=== PATIENT | female | born 1995 | race African-American/Black ===

== ENCOUNTER 2016-03-10 11:45 | Inpatient (IN) | payer MEDICAID ==
--- NOTE | 2016-03-10 12:00 | L&D Flow Sheet ---
LD Flowsheet Datetime Report Generated by CPN: 03/10/2016 12:00 Datetime: 03/10/2016 11:58 NBP Sys/Kendy/Mean (mmHg): 129 (QS system process) : 89 (QS system process) : 105 (QS system process) Pulse: 97 (QS system process) LaborFlag: Antepartum (QS system process)
[2016-03-10 12:34] LABS: APPEARANCE,URINE CLOUDY; BILIRUBIN,URINE NEGATIVE (NEGATIVE); GLUCOSE, URINE NEGATIVE (NEGATIVE); KETONES,URINE NEGATIVE (NEGATIVE); LEUKOCYTE ESTERASE,URINE MODERATE (NEGATIVE); NITRITE,URINE NEGATIVE (NEGATIVE); PROTEIN,URINE NEGATIVE (NEGATIVE); URINE SPECIFIC GRAVITY 1.011; UROBILINOGEN,URINE NEGATIVE mg/dL (<2.0)
[2016-03-10 12:50] LABS: URINE BARBITURATES SCREEN NEGATIVE; URINE METHADONE SCREEN NEGATIVE; URINE PHENCYCLIDINE SCREEN NEGATIVE
[2016-03-10] MEDS ORDERED: RINGERS SOLUTION,LACTATED 1,000 ML IV ONE (13:12)
[2016-03-10] MEDS ORDERED: DEXTROSE 5%-LACTATED RINGERS 1,000 ML IV PRN (13:12)
[2016-03-10] MEDS ORDERED: RINGERS SOLUTION,LACTATED 1,000 ML IV PRN (13:12)
[2016-03-10 14:16] LABS: ABSOLUTE LYMPHOCYTES (AUTO) 2.1 10^3/uL (0.5-4.7); ABSOLUTE NEUT (AUTO) 10.5 10^3/uL (1.7-8.2); BASOPHILS % (AUTO) 0.3 % (0-2); EOSINOPHILS % (AUTO) 0.3 % (0-6); HEMATOCRIT 35.9 % (36.0-47.0); HEMOGLOBIN 12.3 g/dL (12.0-15.5); LYMPHOCYTES % (AUTO) 15.6 % (13-45); MEAN CORPUSCULAR HEMOGLOBIN 29.3 pg (27.0-33.4); MEAN CORPUSCULAR HGB CONC 34.4 g/dL (32.0-36.0); MEAN CORPUSCULAR VOLUME 85 fl (80-97); RED BLOOD COUNT 4.21 10^6/uL (3.72-5.28); RED CELL DISTRIBUTION WIDTH 13.1 % (11.5-14.0); SEGMENTED NEUTROPHILS % (AUTO) 76.8 % (42-78); WHITE BLOOD COUNT 13.6 10^3/uL (4.0-10.5)
[2016-03-10] MEDS ORDERED: MISOPROSTOL 0.2 MG TABLET ONE (15:07)
[2016-03-10] MEDS ORDERED: OXYTOCIN/NORMAL SALINE 20 UNIT/1,000 ML RTUINJ ONE (15:07)
[2016-03-10] MEDS ORDERED: LIDOCAINE 1% INJ-PF (10 MG/ML) 30 ML SDV ONE (15:07)
--- NOTE | 2016-03-10 16:00 | L&D Flow Sheet ---
LD Flowsheet Datetime Report Generated by CPN: 03/10/2016 16:00 Datetime: 03/10/2016 15:59 Pulse: 71 (QS system process) SpO2 (%): 100 (QS system process) LaborFlag: Antepartum (QS system process) Datetime: 03/10/2016 15:57 Pushing: Coached on Pushing; Urge to Push (Elmira Woodard RN) Pushing Position: Pushing with Contractions; Pushing Lithotomy (Elmira Atkinson, RN) Pushing Progress: Descent with Pushing; Pushing Effectively with Contractions (Elmira Annard, RN) Datetime: 03/10/2016 15:56 Actions for Decelerations: Oxygen Applied (Elmira Annard, RN) Oxygen Amount : 10 (Elmira Annard, RN) Datetime: 03/10/2016 15:55 NBP Sys/Kendy/Mean (mmHg): 140 (QS system process) : 79 (QS system process) : 103 (QS system process) Pulse: 82 (QS system process) LaborFlag: Antepartum (QS system process) Datetime: 03/10/2016 15:53 Comments: scalp stim (Elmira Vnace, RN) Communication: Provider at Bedside (Elmira Annard, RN) Provider Notified (Name): Dr. Tobias at bedside (Elmira Vance, RN) Datetime: 03/10/2016 15:52 Pushing: Coached on Pushing (Elmira Vance, RN) Pushing Position: Pushing with Contractions; Pushing Lithotomy (Elmira Atkinson, RN) Pushing Progress: Pushing Effectively with Contractions (Elmira Atkinson, RN) Stage 2 Comments: pull technique (Elmira Atkinson, RN) Datetime: 03/10/2016 15:49 Pushing: Coached on Pushing (Elmira Vance, RN) Pushing Position: Pushing with Contractions (Elmira Atkinson, RN) Pushing Progress: Pushing Effectively with Contractions (Elmira Atkinson, RN) Datetime: 03/10/2016 15:44 Pushing: Coached on Pushing; Urge to Push (Elmira Woodard, TRUE) Pushing Position: Pushing with Contractions; Pushing Lithotomy (Elmira Woodard, TRUE) Pushing Progress: Descent with Pushing; Pushing Effectively with Contractions (Elmira Woodard, RN) Datetime: 03/10/2016 15:43 Dilatation (cm): 10.0 (Elmira Woodard, TRUE) Effacement (%): 100 (Elmira Woodard, TRUE) Station: 1 (Elmira Woodard, TRUE) Exam by: Dr. Tobias (Elmira Woodard, TRUE) Vaginal Bleeding: Normal Show (Elmira Woodard, TRUE) Cervix, Consistency: Soft (Elmira Woodard, RN) Cervix, Position: Midposition (Elmira Woodard, RN) Datetime: 03/10/2016 15:42 Provider Reviewed Strip: Yes (Elmira Woodard RN) Communication: RN at Bedside; Provider at Bedside (Elmira Woodard RN) Provider Notified (Name): Dr. Tobias at bedside to assess cervical dilation and for delivery (Elmira Woodard RN) Datetime: 03/10/2016 15:37 Dilatation (cm): 9.5 (Paulette Lindsey RN) Effacement (%): 100 (Paulette Lindsey RN) Station: 2 (Paulette Lindsey RN) Exam by: Brooklyn Lindsey RN (Paulette Lindsey RN) Vaginal Bleeding: None (Paulette Lindsey RN) Cervix, Consistency: Soft (Paulette Lindsey RN) Cervix, Position: Midposition (Paulette Lindsey RN) Datetime: 03/10/2016 15:30 Monitor Mode: External; Palpation (Elmira Woodard, RN) Frequency (min): 2-3.5 (Elmira Woodard, RN) Quality: Moderate (Elmira Annard, RN) Duration (sec): 60-90 (Elmira Annard, RN) Resting Tone (Palpate): Relaxed (Elmira Woodard, RN) Monitor Mode: External US (Elmira Woodard, RN) FHR Baseline Rate : 115 (Elmira Woodard, RN) FHR Baseline Changes: No Baseline Change (Elmira Annard, RN) Variability: Moderate 6-25 bpm (Elmira Atkinson, RN) Accelerations: 15X15 (Elmira Annard, RN) Decelerations: Early (Elmira Woodard, RN) Datetime: 03/10/2016 15:27 Comments: RN at bedside continuoulsy assessing FHT while patient pushes with contractions. (Elmira Woodard, RN) Communication: RN at Bedside (Elmira Woodard, RN) Datetime: 03/10/2016 15:26 Preparation for Delivery: Setup for Delivery (Elmira Woodard, RN) Datetime: 03/10/2016 15:18 Dilatation (cm): 8.5 (Paulette Lindsey RN) Effacement (%): 100 (Paulette Lindsey RN) Station: 2 (Paulette Lindsey RN) Exam by: Dr. Tobias (Paulette Lindsey RN) Membrane Status: Ruptured (Paulette Lindsey RN) Membranes Rupture Method: Artificial (Paulette Lindsey RN) Amniotic Fluid Color: Clear (Paulette Lindsey RN) Amniotic Fluid Amount: Small (Paulette Lindsey RN) Datetime: 03/10/2016 15:08 Monitor Interventions for UA: [place] Adjusted (Paulette Lindsey RN) Datetime: 03/10/2016 15:05 Monitor Interventions for UA: [place] Adjusted (Paulette Marhefka, RN) Datetime: 03/10/2016 15:00 Monitor Mode: External; Palpation (Paulette Marhefka, RN) Frequency (min): 40-60 (Paulette Marhefka, RN) Quality: Moderate (Paulette Marhefka, RN) Duration (sec): 1-2 (Paulette Marhefka, RN) Resting Tone (Palpate): Relaxed (Paulette Marhefka, RN) Monitor Mode: External US (Paulette Marhefka, RN) FHR Baseline Rate : 120 (Paulette Marhefka, RN) FHR Baseline Changes: No Baseline Change (Paulette Marhefka, RN) Variability: Moderate 6-25 bpm (Paulette Marhefka, RN) Accelerations: 15X15 (Paulette Marhefka, RN) Decelerations: None (Paulette Marhefka, RN) Datetime: 03/10/2016 14:59 Pain Scale: 4 (Paulette Lindsey RN) Pain Presence: Intermittent (Paulette Lindsey RN) Pain Type: Contraction (Paulette Lindsey RN) Pain Location: Abdomen (Paulette Lindsey RN) Pain Goal: 0 (Paulette Lindsey RN) Pain Relief Measures: Comfort Measures (Paulette Lindsey RN) Pain Coping: Breathing Through Contractions; Requesting Pain Medication or Epidural (Paulette Lindsey RN) Pain Assessment Comments: Pt requesting IV pain medication, stating that she would like to continue laboring without the epidural. Pt counseled on the effects of IV pain medication on infant's RR. Pt verbalized understanding, declining IV medication post counseling. (Paulette Lindsey RN) Comfort Measures: Breathing/Relaxation (Paulette Lindsey RN) Communication: Report Given to @ Dr. Tobias (Paulette Lindsey RN) Notification Reason: Status Update; Labor Status; Membrane Status; Patient Request (Paulette Lindsey RN) LaborFlag: Antepartum (QS system process) Datetime: 03/10/2016 14:55 Dilatation (cm): 7.0 (Paulette Lindsey RN) Effacement (%): 100 (Paulette Lindsey RN) Station: 0 (Paulette Lindsey RN) Exam by: Brooklyn Lindsey RN (Paulette Lindsey RN) Vaginal Bleeding: None (Paulette Lindsey RN) Cervix, Consistency: Soft (Paulette Lindsey RN) Cervix, Position: Midposition (Paulette Lindsey RN) Datetime: 03/10/2016 14:27 Patient Care Comments: Pt bouncing on birthing ball, with support from her friend @ bedside. (Paulette Lindsey RN) Datetime: 03/10/2016 14:03 I/O Interventions: Up to BR (Paulette Lindsey RN) Patient Care Comments: Pt OOB to bathroom and then ambulating in the martin. (Paulette Lindsey RN) Datetime: 03/10/2016 14:00 Monitor Mode: External; Palpation (Paulette Marhefka, RN) Frequency (min): 2-4 (Paulette Marhefka, RN) Quality: Mild/Moderate (Paulette Marhefka, RN) Duration (sec): 40-80 (Paulette Marhefka, RN) Resting Tone (Palpate): Relaxed (Paulette Marhefka, RN) Monitor Mode: External US (Paulette Marhefka, RN) FHR Baseline Rate : 115 (Paulette Marhefka, RN) FHR Baseline Changes: No Baseline Change (Paulette Marhefka, RN) Variability: Moderate 6-25 bpm (Paulette Marhefka, RN) Accelerations: 15X15 (Paulette Marhefka, RN) Decelerations: None (Paulette Marhefka, RN) Datetime: 03/10/2016 13:43 IV/Blood Work: Labs Drawn (Paulette Marhefka, RN) Datetime: 03/10/2016 13:30 Monitor Mode: External; Palpation (Paulette Marhefka, RN) Frequency (min): 1-5 (Paulette Marhefka, RN) Quality: Mild/Moderate (Paulette Marhefka, RN) Duration (sec): 40-110 (Paulette Marhefka, RN) Resting Tone (Palpate): Relaxed (Paulette Marhefka, RN) Monitor Mode: External US (Paulette Marhefka, RN) FHR Baseline Rate : 115 (Paulette Marhefka, RN) FHR Baseline Changes: No Baseline Change (Paulette Marhefka, RN) Variability: Moderate 6-25 bpm (Paulette Marhefka, RN) Accelerations: 15X15 (Paulette Marhefka, RN) Decelerations: None (Paulette Marhefka, RN) Datetime: 03/10/2016 13:26 IV/Blood Work: IV Started; IV Infusing per Order; New IV Bag Hung (Paulette Marhefka, RN) Datetime: 03/10/2016 13:24 Unit Routine: Consents Signed (Paulette Lindsey RN) Datetime: 03/10/2016 13:16 Communication: Call/Page Placed to Provider (Paulette Lindsey RN) Notification Reason: Status Update; Status; Labor Status; Membrane Status; Pain (Paulette Lindsey RN) Communication Comments: Dr. Tobias notified of patient's vaginal exam, order received to admit patient. Order also received, pt may have epidural prn. (Paulette Lindsey RN) Datetime: 03/10/2016 13:06 Dilatation (cm): 4.5 (Paulette Lindsey RN) Effacement (%): 100 (Paulette Lindsey RN) Station: 0 (Paulette Lindsey RN) Exam by: Brooklyn Lindsey RN (Paulette Lindsey RN) Vaginal Bleeding: None (Paulette Lindsey RN) Cervix, Consistency: Soft (Paulette Marhefka, RN) Cervix, Position: Midposition (Paulette Lindsey, RN) Datetime: 03/10/2016 13:05 NBP Sys/Kendy/Mean (mmHg): 124 (QS system process) : 64 (QS system process) : 87 (QS system process) Pulse: 77 (QS system process) LaborFlag: Antepartum (QS system process) Datetime: 03/10/2016 12:31 Temperature (F): 97.4 (Alena Tobias RN) Temperature (C): 36.3 (QS system process) Temperature Route: Oral (Alena Tobias RN) LaborFlag: Antepartum (QS system process) Datetime: 03/10/2016 12:23 Monitor Mode: External (Paulette Marhefka, RN) Frequency (min): 2-4 (Paulette Marhefka, RN) Quality: Mild (Paulette Marhefka, RN) Duration (sec): 50-70 (Paulette Marhefka, RN) Resting Tone (Palpate): Relaxed (Paulette Marhefka, RN) Monitor Mode: External US (Paulette Marhefka, RN) FHR Baseline Rate : 120 (Paulette Marhefka, RN) FHR Baseline Changes: No Baseline Change (Paulette Marhefka, RN) Variability: Moderate 6-25 bpm (Paulette Marhefka, RN) Accelerations: 15X15 (Paulette Marhefka, RN) Decelerations: None (Paulette Marhefka, RN) Datetime: 03/10/2016 12:16 NBP Sys/Kendy/Mean (mmHg): 115 (QS system process) : 80 (QS system process) : 91 (QS system process) Pulse: 76 (QS system process) LaborFlag: Antepartum (QS system process) Datetime: 03/10/2016 12:07 Pain Scale: 4 (Paulette Lindsey RN) Pain Presence: Intermittent (Annotations: Pt states that her pain is constant lower in her abdomen with an occassional sharp pain. ) (Paulette Lindsey RN) Pain Type: Contraction (Paulette Lindsey RN) Pain Location: Abdomen (Paulette Lindsey RN) Pain Goal: 0 (Paulette Lindsey RN) Pain Relief Measures: Comfort Measures (Paulette Lindsey RN) Pain Coping: Breathing Through Contractions (Paulette Lindsey RN) Membrane Status: Intact (Paulette Lindsey RN) Vaginal Bleeding: None (Paulette Lindsey RN) Level of Consciousness: Fully Conscious (Paulette Lindsey RN) DTR's/Clonus: DTRs 2+; No Clonus (Paulette Lindsey RN) Headache: Denies (Paulette Lindsey RN) Breath Sounds, Left: Clear and Equal (Paulette Lindsye RN) Breath Sounds, Right: Clear and Equal (Paulette Lindsey RN) Nausea/Vomiting: Present (Annotations: Pt states that she vomited right before arrival) (Paulette Lindsey RN) RUQ Epigastric Pain: Denies (Paulette Lindsey RN) LaborFlag: Antepartum (QS system process) Datetime: 03/10/2016 12:02 Dilatation (cm): 3.0 (Paulette Lindsey RN) Effacement (%): 100 (Paulette Lindsey RN) Station: 0 (Paulette Lindsey RN) Exam by: Brooklyn Lindsey RN (Paulette Lindsey RN) Vaginal Bleeding: None (Paulette Lindsey RN) Cervix, Consistency: Soft (Paulette Lindsey RN) Cervix, Position: Midposition (Paulette Lindsey RN)
[2016-03-10] MEDS ORDERED: OXYTOCIN/NORMAL SALINE 1,000 ML IV PRN (16:49)
[2016-03-10] MEDS ORDERED: MEASLES,MUMPS&RUBELLA VACC/PF 0.5 ML VIAL SUBCUT PRN (16:49)
[2016-03-10] MEDS ORDERED: DIBUCAINE 1% OINTMENT 28 GM TP PRN (16:49)
[2016-03-10] MEDS ORDERED: BENZOCAINE/MENTHOL AEROSOL SPRAY 56 ML TOP PRN (16:49)
[2016-03-10] MEDS ORDERED: ACETAMINOPHEN WITH CODEINE #3 TABLET PO PRN ×2 (16:49)
[2016-03-10] MEDS ORDERED: DIPH/PERTUSS(ACELL)/TETANUS VAC/PF 0.5 ML SYR (>=10YO) IM PRN (16:49)
[2016-03-10] MEDS ORDERED: ZOLPIDEM TARTRATE 5 MG TABLET PO PRN (16:49)
--- NOTE | 2016-03-10 17:50 | Delivery Summary ---
Del Sum A-C Datetime Report Generated by CPN: 03/10/2016 17:50 ADMISSION DATA Chief Complaint: Uterine Contractions Indication for Induction: Not Applicable Admission Impression: Term, Intrauterine ; Active Labor DELIVERY PERSONNEL Delivery Doctor:: Anayeli Tobias MD Labor and Delivery Nurse:: Paulette Lindsey RNsurgical first assistant Nurse:: Elmira Woodard RN Nursery Nurse:: Carissa White RN Staff Engineer/WASHER MACHINE: Shelton [address] ST MATERNAL INFORMATION Delivery Anesthesia: None Medications After Delivery: Pitocin Bolus-Please Comment; Pitocin Drip 20 Units/1000ml NSS Estimated Blood Loss (ml): 200 Maternal Complications: None LABOR SUMMARY EDC: 03/15/2016 00:00 No. Babies in Womb: 1 Attempted: No Labor Anesthesia: None LABOR INFORMATION Reason for Induction: Not Applicable Onset of Labor: 03/10/2016 12:00 Complete Dilatation: 03/10/2016 15:43 Oxytocin: N/A Group B Beta Strep: Negative Antibiotics # of Doses: n/a Antibiotics Time of Last Dose: n/a Name of Antibiotic Given: n/a Steroids Given: None Reason Steroids Not Administered: Not Applicable Other Reason Not Administered: n/a MEMBRANES Membranes Rupture Method: Artificial Rupture of Membranes: 03/10/2016 15:18 Length of Rupture (hr): 1.23 Amniotic Fluid Color: Clear Amniotic Fluid Amount: Small Amniotic Fluid Odor: Normal STAGES OF LABOR Stage 1 hr: 3 Stage 1 min: 43 Stage 2 hr: 0 Stage 2 min: 49 Stage 3 hr: 0 Stage 3 min: 5 Total Time in Labor hr: 4 Total Time in Labor min: 37 VAGINAL DELIVERY Episiotomy: None Laceration Extension: N/A Laceration Type: None Laceration Repair: Not Applicable Sponge Count Correct: N/A Sharps Count Correct: N/A BABY A INFORMATION Infant Delivery Date/Time: 03/10/2016 16:32 Method of Delivery: Vaginal Born in Route : No : N/A Forceps: N/A Vacuum Extraction: N/A Shoulder Dystocia : No PRESENTATION/POSITION BABY A Presentation: Cephalic Cephalic Presentation: Vertex Vertex Position: Right Occipital Anterior Breech Presentation: N/A PLACENTA INFORMATION BABY A Placenta Delivery Time : 03/10/2016 16:37 Placenta Method of Delivery: Spontaneous Placenta Status: Delivered SCORES BABY A Heart Rate 1 min: >100 bpm Resp Effort 1 min: Good Cry Reflex Irritability 1 min: Cough or Sneeze or Pulls Away Muscle Tone 1 min: Some Flexion of Extremities Color 1 min: Blue/Pale Resuscitation Effort 1 min: Tactile Stimulation SCORE 1 MIN: 7 Heart Rate 5 min: >100 bpm Resp Effort 5 min: Good Cry Reflex Irritability 5 min: Cough or Sneeze or Pulls Away Muscle Tone 5 min: Some Flexion of Extremities Color 5 min: Body [place], Extremities Blue Resuscitation Effort 5 min: Tactile Stimulation SCORE 5 MIN: 8 INFORMATION BABY A Gestational Age at Delivery: 39.2 Gestational Status: Full Term- 39- 40.6 Weeks Infant Outcome : Liveborn Condition : Stable Sex: Female IDENTIFICATION BABY A Verification Date/Time: 03/10/2016 17:01 ID Band Number: [id number] Mother's Name Verified: Yes RN Verifying : Brooklyn SaraviaharvindernuTRUE ocampo/Betsy Tobias RN WEIGHT/LENGTH BABY A Infant Birthweight (gm): 2981 Infant Weight (lb): 6 Weight (oz): 9 Infant Length (in): 19.75 Length (cm): 50.17 CORD INFORMATION BABY A No. Cord Vessels: 3 Nuchal Cord : N/A Cord Blood Taken: Yes-For Eval (Mom's Blood Type - or O+) Suction: Mouth; Nose ASSESSMENT BABY A Complications: None Complications- Other: Compound hand Physical Findings at Delivery: Within Normal Limits Infant Respirations: Tachypnea Skin to Skin: Yes Polygraph Operator/ALS Called : No Infant Care By: Kong White RN Transferred To: Nursery BABY B INFORMATION : N/A SIGNATURES Signature: with User ID: [email or web address]
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
[2016-03-10] MEDS: FERROUS SULFATE 325 MG TABLET PO SCH (19:00)
[2016-03-10] MEDS: DOCUSATE SODIUM 100 MG CAPSULE PO SCH (19:00)
--- NOTE | 2016-03-10 19:00 | L&D Flow Sheet ---
LD Flowsheet Datetime Report Generated by CPN: 03/10/2016 19:00 Datetime: 03/10/2016 18:20 Stage of : Recovery (Paulette Lindsey RN) NBP Sys/Kendy/Mean (mmHg): 128 (QS system process) : 75 (QS system process) : 97 (QS system process) Pulse: 75 (QS system process) Pain Scale: 0 (Paulette Lindsey RN) Pain Presence: None/Denies (Paulette Lindsey RN) Pain Type: N/A (Paulette Lindsey RN) Pain Goal: 0 (Paulette Lindsey RN) Pain Relief Measures: Comfort Measures (Paulette Lindsey RN) Datetime: 03/10/2016 17:42 NBP Sys/Kendy/Mean (mmHg): 108 (QS system process) : 57 (QS system process) : 80 (QS system process) Pulse: 75 (QS system process) Datetime: 03/10/2016 17:40 Stage of : Recovery (Paulette Lindsey, RN) Pain Scale: 0 (Paulette Lindsey, RN) Pain Presence: None/Denies (Paulette Lindsey, RN) Pain Type: N/A (Paulette Briannafka, RN) Pain Goal: 0 (Paulette Lindsey, RN) Pain Relief Measures: Comfort Measures (Paulette César, RN) Datetime: 03/10/2016 17:28 NBP Sys/Kendy/Mean (mmHg): 98 (QS system process) : 66 (QS system process) : 73 (QS system process) Pulse: 75 (QS system process) Datetime: 03/10/2016 17:25 Stage of : Recovery (Paulette Lindsey RN) Pain Scale: 0 (Paulette Lindsey RN) Pain Presence: None/Denies (Paulette Lindsey RN) Pain Type: N/A (Paulette Lindsey RN) Pain Goal: 0 (Paulette Lindsey RN) Pain Relief Measures: Comfort Measures (Paulette Lindsey RN) Datetime: 03/10/2016 17:13 NBP Sys/Kendy/Mean (mmHg): 152 (QS system process) : 77 (QS system process) : 94 (QS system process) Pulse: 93 (QS system process) Datetime: 03/10/2016 17:10 Stage of : Recovery (Paulette Briannafdamaris, RN) Pain Scale: 0 (Paulette Reedfka, RN) Pain Presence: None/Denies (Paulette Briannafka, RN) Pain Type: N/A (Paulette Marhefka, RN) Pain Goal: 0 (Paulette Marhefka, RN) Pain Relief Measures: Comfort Measures (Paulette Marhefdamaris, RN) Datetime: 03/10/2016 16:57 NBP Sys/Kendy/Mean (mmHg): 124 (QS system process) : 74 (QS system process) : 95 (QS system process) Pulse: 96 (QS system process) Datetime: 03/10/2016 16:55 Stage of : Recovery (Paulette César, RN) Pain Scale: 1 (Paulette Lindsey RN) Pain Presence: Constant (Paulette Lindsey RN) Pain Type: Ache (Paulette Lindsey RN) Pain Location: Abdomen; Perineum (Paulette Lindsey RN) Pain Goal: 0 (Paulette Lindsey RN) Pain Relief Measures: Comfort Measures (Paulette Lindsey RN) Datetime: 03/10/2016 16:42 Stage of : Recovery (Pauletet Lindsey RN) NBP Sys/Kendy/Mean (mmHg): 119 (QS system process) : 64 (QS system process) : 85 (QS system process) Pulse: 86 (QS system process) Respirations: 16 (Paulette Lindsey RN) Datetime: 03/10/2016 16:40 Stage of : Recovery (Paulette Lindsey RN) Pain Scale: 1 (Paulette Lindsey RN) Pain Presence: Constant (Paulette Lindsey RN) Pain Type: Burning; Ache (Paulette Lindsey RN) Pain Location: Perineum (Paulette Lindsey RN) Pain Goal: 0 (Paulette Lindsey RN) Pain Relief Measures: Comfort Measures (Paulette Lindsey, TRUE) Datetime: 03/10/2016 16:32 Comments: viable baby girl (Paulette Lindsey, TRUE) Datetime: 03/10/2016 16:30 Monitor Mode: External; Palpation (Paulette Lindsey RN) Frequency (min): 2-3 (Paulette Lindsey RN) Quality: Moderate to Strong (Paulette Lindsey RN) Duration (sec): 40-80 (Paulette Lindsey RN) Resting Tone (Palpate): Relaxed (Paulette Lindsey RN) Monitor Mode: Internal Scalp Electrode (Paulette Lindsey RN) FHR Baseline Rate : 115 (Paulette Lindsey RN) FHR Baseline Changes: No Baseline Change (Paulette Lindsey RN) Variability: Moderate 6-25 bpm (Paulette Lindsey RN) Accelerations: None (Paulette Marhefka, RN) Decelerations: Early; Variable (Paulette Lindsey, RN) Datetime: 03/10/2016 16:27 Comments: Oxygen 10 l continued via non-rebreather (Elmira Annard, RN) Pushing: Coached on Pushing (Elmira Vance, RN) Pushing Position: Pushing with Contractions; Pushing Lithotomy (Elmira Vance, RN) Pushing Progress: Descent with Pushing; Perineal Bulging; Rectal Bulging; Presenting Part Visible; with Pushing; Pushing Effectively with Contractions (Elmira [place], RN) Datetime: 03/10/2016 16:24 Pushing: Coached on Pushing (Elmira [place], RN) Pushing Position: Pushing with Contractions; Pushing Lithotomy (Elmira Vance, RN) Pushing Progress: Descent with Pushing; Perineal Bulging; Rectal Bulging; Presenting Part Visible; with Pushing (Elmira [place], RN) Datetime: 03/10/2016 16:20 Pulse: 78 (QS system process) SpO2 (%): 83 (QS system process) Pushing Position: Pushing with Contractions; Pushing Lithotomy (Elmira Woodard, TRUE) LaborFlag: Antepartum (QS system process) Datetime: 03/10/2016 16:19 Pulse: 80 (QS system process) SpO2 (%): 100 (QS system process) Pushing: Coached on Pushing (Elmira Woodard, RN) Pushing Position: Pushing with Contractions; Pushing Lithotomy (Elmira Woodard RN) Pushing Progress: Descent with Pushing; Presenting Part Visible; Pushing Effectively with Contractions (Elmira Woodard, RN) Stage 2 Comments: pull technique (Elmira Woodard, RN) LaborFlag: Antepartum (QS system process) Datetime: 03/10/2016 16:17 Communication: Provider at Bedside (Elmira Woodard RN) Datetime: 03/10/2016 16:15 Pulse: 86 (QS system process) SpO2 (%): 68 (QS system process) Monitor Mode: External (Paulette Marhefka, RN) Frequency (min): 2-3 (Paulette Marhefka, RN) Quality: Moderate to Strong (Paulette Marhefka, RN) Duration (sec): 60-90 (Paulette Marhefka, RN) Resting Tone (Palpate): Relaxed (Paulette Marhefka, RN) Monitor Mode: Internal Scalp Electrode (Paulette Marhefka, RN) FHR Baseline Rate : 115 (Paulette Marhefka, RN) FHR Baseline Changes: No Baseline Change (Paulette Marhefka, RN) Variability: Moderate 6-25 bpm (Paulette Marhefka, RN) Accelerations: None (Paulette Marhefka, RN) Decelerations: Early; Late (Paulette Marhefka, RN) LaborFlag: Antepartum (QS system process) Datetime: 03/10/2016 16:14 Pulse: 76 (QS system process) SpO2 (%): 100 (QS system process) LaborFlag: Antepartum (QS system process) Datetime: 03/10/2016 16:13 Pushing: Coached on Pushing (Elmira Vance, RN) Pushing Position: Pushing with Contractions (Elmira [place], RN) Pushing Progress: Descent with Pushing; Presenting Part Visible; Pushing Effectively with Contractions (Elmira [place], RN) Datetime: 03/10/2016 16:10 Pushing: Coached on Pushing (Elmira Vance, RN) Pushing Position: Pushing with Contractions (Elmira Vance, RN) Pushing Progress: Descent with Pushing; Pushing Effectively with Contractions (Elmira Vance, RN) Datetime: 03/10/2016 16:09 Pulse: 70 (QS system process) SpO2 (%): 100 (QS system process) LaborFlag: Antepartum (QS system process) Datetime: 03/10/2016 16:08 Monitor Interventions for FHR: FSE Applied (Elmira Vance, RN) Datetime: 03/10/2016 16:04 Pulse: 69 (QS system process) SpO2 (%): 100 (QS system process) LaborFlag: Antepartum (QS system process) Datetime: 03/10/2016 16:01 Pulse: 74 (QS system process) SpO2 (%): 75 (QS system process) Pushing: Coached on Pushing (Elmira Woodard RN) Pushing Position: Pushing with Contractions; Pushing Lithotomy (Elmira Woodard RN) Pushing Progress: Descent with Pushing; Pushing Effectively with Contractions (Elmira Woodard RN) Stage 2 Comments: pull technique (Elmira Woodard RN) LaborFlag: Antepartum (QS system process) Datetime: 03/10/2016 16:00 Monitor Mode: External; Palpation (Paulette Lindsey RN) Frequency (min): 2-3 (Paulette Lindsey RN) Quality: Moderate to Strong (Paulette Lindsey RN) Duration (sec): 40-100 (Paulette Lindsey RN) Resting Tone (Palpate): Relaxed (Paulette Lindsey RN) Monitor Mode: External US (Paulette Lindsey RN) FHR Baseline Rate : 110 (Paulette Lindsey RN) FHR Baseline Changes: No Baseline Change (Paulette Marhefka, RN) Variability: Moderate 6-25 bpm (Paulette Briannafka, RN) Decelerations: Late (Paulette Briannafka, RN) Datetime: 03/10/2016 15:59 Pulse: 71 (QS system process) SpO2 (%): 100 (QS system process) LaborFlag: Antepartum (QS system process) Datetime: 03/10/2016 15:57 Pushing: Coached on Pushing; Urge to Push (Elmira Woodard, RN) Pushing Position: Pushing with Contractions; Pushing Lithotomy (Elmira Annard, RN) Pushing Progress: Descent with Pushing; Pushing Effectively with Contractions (Elmira Annard, RN) Datetime: 03/10/2016 15:56 Actions for Decelerations: Oxygen Applied (Elmira Woodard, RN) Oxygen Amount : 10 (Elmira Woodard, RN) Datetime: 03/10/2016 15:55 NBP Sys/Kendy/Mean (mmHg): 140 (QS system process) : 79 (QS system process) : 103 (QS system process) Pulse: 82 (QS system process) LaborFlag: Antepartum (QS system process) Datetime: 03/10/2016 15:53 Comments: scalp stim (Elmira Woodard RN) Communication: Provider at Bedside (Elmira Woodard RN) Provider Notified (Name): Dr. Tobias at bedside (Elmira Woodard, RN) Datetime: 03/10/2016 15:52 Pushing: Coached on Pushing (Elmira Vance, RN) Pushing Position: Pushing with Contractions; Pushing Lithotomy (Elmira [place], RN) Pushing Progress: Pushing Effectively with Contractions (Elmira Vance, RN) Stage 2 Comments: pull technique (Elmira [place], RN) Datetime: 03/10/2016 15:49 Pushing: Coached on Pushing (Elmira [place], RN) Pushing Position: Pushing with Contractions (Elmira Vance, RN) Pushing Progress: Pushing Effectively with Contractions (Elmira Vance, RN) Datetime: 03/10/2016 15:45 Monitor Mode: External (Paulette Marhefka, RN) Frequency (min): 1-2 (Paulette Marhefka, RN) Quality: Moderate to Strong (Paulette Marhefka, RN) Duration (sec): 40-100 (Paulette Marhefka, RN) Resting Tone (Palpate): Relaxed (Paulette Marhefka, RN) Monitor Mode: External US (Paulette Marhefka, RN) FHR Baseline Rate : 135 (Paulette Marhefka, RN) FHR Baseline Changes: No Baseline Change (Paulette Marhefka, RN) Variability: Moderate 6-25 bpm (Paulette Marhefka, RN) Accelerations: 15X15 (Paulette Marhefka, RN) Decelerations: None (Paulette Marhefka, RN) Datetime: 03/10/2016 15:44 Pushing: Coached on Pushing; Urge to Push (Elmira Woodard, RN) Pushing Position: Pushing with Contractions; Pushing Lithotomy (Elmira Woodard, RN) Pushing Progress: Descent with Pushing; Pushing Effectively with Contractions (Elmira Woodard, RN) Datetime: 03/10/2016 15:43 Dilatation (cm): 10.0 (Elmira Woodard RN) Effacement (%): 100 (Elmira Woodard RN) Station: 1 (Elmira Woodard RN) Exam by: Dr. Tobias (Elmira Woodard RN) Vaginal Bleeding: Normal Show (Elmira Woodard RN) Cervix, Consistency: Soft (Elmira Woodard RN) Cervix, Position: Midposition (Elmria Woodard RN) Datetime: 03/10/2016 15:42 Provider Reviewed Strip: Yes (Elmira Woodard RN) Communication: RN at Bedside; Provider at Bedside (Elmira Woodard RN) Provider Notified (Name): Dr. Tobias at bedside to assess cervical dilation and for delivery (Elmira Woodard RN) Datetime: 03/10/2016 15:37 Dilatation (cm): 9.5 (Paulette Lindsey RN) Effacement (%): 100 (Paulette Lindsey RN) Station: 2 (Paulette Lindsey RN) Exam by: Brooklyn Lindsey RN (Paulette Lindsey RN) Vaginal Bleeding: None (Paulette Lindsey RN) Cervix, Consistency: Soft (Paulette Lindsey RN) Cervix, Position: Midposition (Paulette Lindsey RN) Datetime: 03/10/2016 15:30 Monitor Mode: External; Palpation (Elmira Woodard, RN) Frequency (min): 2-3.5 (Elmira Woodard, RN) Quality: Moderate (Elmira Woodard, RN) Duration (sec): 60-90 (Elmira Woodard, RN) Resting Tone (Palpate): Relaxed (Elmira Woodard, RN) Monitor Mode: External US (Elmira Woodard, RN) FHR Baseline Rate : 115 (Elmira Woodard, RN) FHR Baseline Changes: No Baseline Change (Elmira Woodard, RN) Variability: Moderate 6-25 bpm (Elmira Woodard, RN) Accelerations: 15X15 (Elmira Woodard, RN) Decelerations: Early (Elmira Woodard, RN) Datetime: 03/10/2016 15:27 Comments: RN at bedside continuoulsy assessing FHT while patient pushes with contractions. (Elmira Woodard RN) Communication: RN at Bedside (Elmira Woodard RN) Datetime: 03/10/2016 15:26 Preparation for Delivery: Setup for Delivery (Elmira Woodard RN) Datetime: 03/10/2016 15:18 Dilatation (cm): 8.5 (Paulette Lindsey RN) Effacement (%): 100 (Paulette Lindsey RN) Station: 2 (Paulette Lindsey RN) Exam by: Dr. Tobias (Paulette Lindsey RN) Membrane Status: Ruptured (Paulette Lindsey RN) Membranes Rupture Method: Artificial (Paulette Lindsey RN) Amniotic Fluid Color: Clear (Paulette Lindsey RN) Amniotic Fluid Amount: Small (Paulette Lindsey RN) Datetime: 03/10/2016 15:08 Monitor Interventions for UA: [place] Adjusted (Paulette Marhefka, RN) Datetime: 03/10/2016 15:05 Monitor Interventions for UA: [place] Adjusted (Paulette Marhefka, RN) Datetime: 03/10/2016 15:00 Monitor Mode: External; Palpation (Paulette Marhefka, RN) Frequency (min): 40-60 (Paulette Briannafka, RN) Quality: Moderate (Paulette Marhefka, RN) Duration (sec): 1-2 (Paulette César, RN) Resting Tone (Palpate): Relaxed (Paulette Lindsey RN) Monitor Mode: External US (Paulette Lindsey RN) FHR Baseline Rate : 120 (Paulette Lindsey RN) FHR Baseline Changes: No Baseline Change (Paulette Lindsey RN) Variability: Moderate 6-25 bpm (Paulette Lindsey RN) Accelerations: 15X15 (Paulette Lindsey RN) Decelerations: None (Paulette Lindsey RN) Datetime: 03/10/2016 14:59 Pain Scale: 4 (Paulette Lindsey RN) Pain Presence: Intermittent (Paulette Lindsey RN) Pain Type: Contraction (Paulette Lindsey RN) Pain Location: Abdomen (Paulette Lindsey RN) Pain Goal: 0 (Paulette Lindsey RN) Pain Relief Measures: Comfort Measures (Paulette Lindsey RN) Pain Coping: Breathing Through Contractions; Requesting Pain Medication or Epidural (Paulette Lindsey RN) Pain Assessment Comments: Pt requesting IV pain medication, stating that she would like to continue laboring without the epidural. Pt counseled on the effects of IV pain medication on 's RR. Pt verbalized understanding, declining IV medication post counseling. (Paulette Lindsey RN) Comfort Measures: Breathing/Relaxation (Paulette Lindsey RN) Communication: Report Given to @ Dr. Tobias (Paulette Lindsey RN) Notification Reason: Status Update; Labor Status; Membrane Status; Patient Request (Paulette Lindsey RN) LaborFlag: Antepartum (QS system process) Datetime: 03/10/2016 14:55 Dilatation (cm): 7.0 (Paulette Lindsey RN) Effacement (%): 100 (Paulette Lindsey RN) Station: 0 (Paulette Lindsey RN) Exam by: Brooklyn Lindsey RN (Paulette Lindsey RN) Vaginal Bleeding: None (Paulette Lindsey RN) Cervix, Consistency: Soft (Paulette Lindsey RN) Cervix, Position: Midposition (Paulette Lindsey RN) Datetime: 03/10/2016 14:27 Patient Care Comments: Pt bouncing on birthing ball, with support from her friend @ bedside. (Paulette Lindsey RN) Datetime: 03/10/2016 14:03 I/O Interventions: Up to BR (Paulette Lindsey, RN) Patient Care Comments: Pt OOB to bathroom and then ambulating in the martin. (Paulette Marhefka, RN) Datetime: 03/10/2016 14:00 Monitor Mode: External; Palpation (Paulette Marhefka, RN) Frequency (min): 2-4 (Paulette Marhefka, RN) Quality: Mild/Moderate (Paulette Marhefka, RN) Duration (sec): 40-80 (Paulette Marhefka, RN) Resting Tone (Palpate): Relaxed (Paulette Marhefka, RN) Monitor Mode: External US (Paulette Marhefka, RN) FHR Baseline Rate : 115 (Paulette Marhefka, RN) FHR Baseline Changes: No Baseline Change (Paulette Marhefka, RN) Variability: Moderate 6-25 bpm (Paulette Marhefka, RN) Accelerations: 15X15 (Paulette Marhefka, RN) Decelerations: None (Paulette Marhefka, RN) Datetime: 03/10/2016 13:43 IV/Blood Work: Labs Drawn (Pauletet Marhefka, RN) Datetime: 03/10/2016 13:30 Monitor Mode: External; Palpation (Paulette Marhefka, RN) Frequency (min): 1-5 (Paulette Marhefka, RN) Quality: Mild/Moderate (Paulette Marhefka, RN) Duration (sec): 40-110 (Paulette Marhefka, RN) Resting Tone (Palpate): Relaxed (Paulette Marhefka, RN) Monitor Mode: External US (Paulette Marhefka, RN) FHR Baseline Rate : 115 (Paulette Marhefka, RN) FHR Baseline Changes: No Baseline Change (Paulette Marhefka, RN) Variability: Moderate 6-25 bpm (Paulette Marhefka, RN) Accelerations: 15X15 (Paulette Marhefka, RN) Decelerations: None (Paulette Marhefka, RN) Datetime: 03/10/2016 13:26 IV/Blood Work: IV Started; IV Infusing per Order; New IV Bag Hung (Paulette Lindsey RN) Datetime: 03/10/2016 13:24 Unit Routine: Consents Signed (Paulette Lindsey RN) Datetime: 03/10/2016 13:16 Communication: Call/Page Placed to Provider (Paulette Lindsey RN) Notification Reason: Status Update; Status; Labor Status; Membrane Status; Pain (Paulette Lindsey RN) Communication Comments: Dr. Tobias notified of patient's vaginal exam, order received to admit patient. Order also received, pt may have epidural prn. (Paulette Lindsey RN) Datetime: 03/10/2016 13:06 Dilatation (cm): 4.5 (Paulette Lindsey RN) Effacement (%): 100 (Paulette Lindsey RN) Station: 0 (Paulette Lindsey RN) Exam by: Brooklyn Lindsey RN (Paulette Lindsey RN) Vaginal Bleeding: None (Paulette Lindsey RN) Cervix, Consistency: Soft (Paulette Lindsey RN) Cervix, Position: Midposition (Paulette Lindsey RN) Datetime: 03/10/2016 13:05 NBP Sys/Kendy/Mean (mmHg): 124 (QS system process) : 64 (QS system process) : 87 (QS system process) Pulse: 77 (QS system process) LaborFlag: Antepartum (QS system process) Datetime: 03/10/2016 12:31 Temperature (F): 97.4 (Alena Tobias, RN) Temperature (C): 36.3 (QS system process) Temperature Route: Oral (Alena Tobias RN) LaborFlag: Antepartum (QS system process) Datetime: 03/10/2016 12:23 Monitor Mode: External (Paulette Marhefka, RN) Frequency (min): 2-4 (Paulette Marhefka, RN) Quality: Mild (Paulette Marhefka, RN) Duration (sec): 50-70 (Paulette Marhefka, RN) Resting Tone (Palpate): Relaxed (Paulette Marhefka, RN) Monitor Mode: External US (Paulette Marhefka, RN) FHR Baseline Rate : 120 (Paulette Marhefka, RN) FHR Baseline Changes: No Baseline Change (Paulette Marhefka, RN) Variability: Moderate 6-25 bpm (Paulette Marhefka, RN) Accelerations: 15X15 (Paulette Marhefka, RN) Decelerations: None (Paulette Marhefka, RN) Datetime: 03/10/2016 12:16 NBP Sys/Kendy/Mean (mmHg): 115 (QS system process) : 80 (QS system process) : 91 (QS system process) Pulse: 76 (QS system process) LaborFlag: Antepartum (QS system process) Datetime: 03/10/2016 12:07 Pain Scale: 4 (Paulette Lindsey RN) Pain Presence: Intermittent (Annotations: Pt states that her pain is constant lower in her abdomen with an occassional sharp pain. ) (Paulette Lindsey RN) Pain Type: Contraction (Paulette Lindsey RN) Pain Location: Abdomen (Paulette Lindsey RN) Pain Goal: 0 (Paulette Lindsey RN) Pain Relief Measures: Comfort Measures (Paulette Lindsey RN) Pain Coping: Breathing Through Contractions (Paulette Lindsey RN) Membrane Status: Intact (Paulette Lindsey RN) Vaginal Bleeding: None (Paulette Lindsey RN) Level of Consciousness: Fully Conscious (Paulette Lindsey RN) DTR's/Clonus: DTRs 2+; No Clonus (Paulette Lindsey RN) Headache: Denies (Paulette Lindsey RN) Breath Sounds, Left: Clear and Equal (Paulette Lindsey RN) Breath Sounds, Right: Clear and Equal (Paulette Lindsey RN) Nausea/Vomiting: Present (Annotations: Pt states that she vomited right before arrival) (Paulette Lindsey RN) RUQ Epigastric Pain: Denies (Paulette Lindsey RN) LaborFlag: Antepartum (QS system process) Datetime: 03/10/2016 12:02 Dilatation (cm): 3.0 (Paulette Lindsey RN) Effacement (%): 100 (Paulette Lindsey RN) Station: 0 (Paulette Lindsey RN) Exam by: Brooklyn Lindsey RN (Paulette Lindsey RN) Vaginal Bleeding: None (Paulette Lindsey RN) Cervix, Consistency: Soft (Paulette Lindsey RN) Cervix, Position: Midposition (Paulette Lindsey RN) Datetime: 03/10/2016 11:59 Patient Position/Activity: Right Lateral; Semi-Fowlers (Paulette Lindsey RN) Instructional Method: Verbal; Patient Instructed; Verbalized Understanding (Paulette Lindsey RN) Plan of Care: Plan of Care Discussed (Paulette Lindsey RN) Unit Routine: [place] to Room; Call [place]; Bed; Visiting Policy; Unit Personnel; Monitoring; Bathroom Privileges (Paulette Lindsey RN) Labor/Induction: Labor Stages (Paulette Lindsey RN) Datetime: 03/10/2016 11:58 NBP Sys/Kendy/Mean (mmHg): 129 (QS system process) : 89 (QS system process) : 105 (QS system process) Pulse: 97 (QS system process) Respirations: 16 (Paulette Lindsey RN) LaborFlag: Antepartum (QS system process)
[2016-03-10] MEDS: IBUPROFEN 800 MG TABLET PO SCH (21:25)
[2016-03-11] MEDS: IBUPROFEN 800 MG TABLET PO SCH ×3 (05:38→21:06)
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
--- NOTE | 2016-03-11 06:15 | L&D Care Plan ---
LD CARE PLANS Datetime Report Generated by CPConner: 03/11/2016 06:15 Datetime: 03/10/2016 13:15 State: Risk For (Carole Gale RN) Related To: Labor and Delivery Process; Treatment and Procedures; Post (Carole Gale RN) Goal(s): Patients Pain will be Assessed and Managed; Patient will Verbalize Adequate Relief of Pain or the Ability to [place] with Current Pain (Carole Gale RN) Interventions: Assess Pain Severity on Scale of 0 (None) to 5 (Severe); Assess Type, Location and Intensity of Pain Each Time Client Reports Discomfort and Notify Provider if Unusal Pain Develops; Encourage Proper Breathing and Relaxation Techniques; Offer Alternatives Such as Repositioning, Calm Environment, Massages, Diversional Activities, Ice Pack, Splinting, and Ambulation; Administer Analgesics as Ordered; Assist with Epidural Placement as Appropriate; Evaluate Therapeutic Effectiveness of Medication and Treatments (Carole Gale RN) Outcome: Patient will Report Absence or Relief of Pain Consistent with Established Pain Goal (Carole Gale RN) Status: Ongoing (Carole Gale RN) Outcome: Patient will have a Decrease in Signs and Symptoms of Discomfort (Carole Gale RN) Status: Ongoing (Carole Gale RN) Outcome: Pain will be Controlled During Procedures (Carole Gale RN) Status: Ongoing (Carole Gale RN) State: Risk For (Carole Gale RN) Related To: Labor and Delivery Process; Fear of Unknown; Medical Interventions; Significant Life Event (Carole Gale RN) Goal(s): Patient will have Decreased Anxiety and be able to Function at Acceptable Levels (Carole Gale RN) Interventions: Assess Verbal and Nonverbal Behavioral Indicators of Anxiety; Assist Patient to Identify and Verbalize Symptoms of Anxiety; Identify and Demonstrate Techniques to Control Anxiety; Assist Patient with Coping Mechanisms to Manage Anxiety; Provide Theraputic Touch for the Patient; Explain to Patient, Using a Calm Reassuring Approach and Nonmedical Terms, All Activities, Procedures, and Concerns; Instruct Patient and Family about Post Discharge Care, Limitations, Symptoms to Report and Resources Available (Carole Gale RN) Outcome: Patient will Identify, Verbalize and Demonstrate Techniques to Control Anxiety (Carole Gale RN) Status: Ongoing (Carole Gale RN) Outcome: Patient's Posture, Facial Expressions, Gestures and Activity Level will Reflect Decreased Anxiety (Carole Gale RN) Status: Ongoing (Carole Gale RN) Outcome: Patient will Verbalize a Sense of Control and/or Acceptance of the Situation (Carole Gale RN) Status: Ongoing (Carole Gale RN) Outcome: Patient will Identify and Utilize Support Person (Carole Gale RN) Status: Ongoing (Carole Gale RN) State: Risk For (Carole Gale RN) Related To: Labor and Delivery Process; Treatment and Procedures; Community Resources and Available Support Mechanisms (Carole Gale RN) Goal(s): Patient will Accurately Verbalize Understanding of Plan of Care and Treatment; Patient and Family will Accurately Verbalize Understanding of the Disease Process (Carole Gale RN) Interventions: Assess Motivation and Willingness of Patient/Family to Learn; Assess Preferred Learning Mode: One to One Instruction, Reading, Videos, Group Discussion or Demonstration; Assess Barriers to Learning: Pain, Emotional State, Language Barrier, Cognitive Impairment, Visual or Hearing Deficits; Assess Patient and Family Knowledge of Disease Process, Medications and Treatment; Discuss Therapy and/or Treatment Options, Describe Rationale Behind Management, Therapy and Treatment Recommendations; Instruct Patient and Family on Signs and Symptoms to Report; Instruct Patient and Family on Medication Effects and Side Effects; Provide Appropriate and Timely Education Using Multiple Techniques; Provide Patient and Family with Support Group Information and Resources; Give Clear and Thorough Explanations and Demonstrations (Carole Gale RN) Outcome: Patient and Family will Verbalize Understanding of Condition, Treatment and Signs and Symptoms to Report (Carole Gale RN) Status: Ongoing (Carole Gale RN) Outcome: Patient will Identify Perceived Learning Needs and Express Motivation to Learn (Carole Gale RN) Status: Ongoing (Carole Gale RN) Outcome: Patient will Verbalize Understanding of Desired Content, and/or Performs Desired Skill Prior to Discharge (Carole Gale RN) Status: Ongoing (Carole Gale RN) State: Risk For (Carole Gale RN) Related To: Prolonged Labor or Induction; Invasive Procedures (Carole Gale RN) Goal(s): The Patient will be Free of Infection, Vital Signs Stable and Lab Work within Normal Parameters (Carole Gale RN) Interventions: Instruct and Reinforce Proper Handwashing, Hygiene, and Care Techniques to Patient and Family; Monitor Vital Signs; Monitor Patient for the Following Signs of Infection: Fever, Abdominal Tenderness, Unusual Discharge; Monitor Aminiotic Fluid, Urine and Lochia for Color and Odor; Observe Wounds, Incisions and Invasive Line Sites for Redness, Drainage and Edema; Assess IV Sites per Hospital Policy; Monitor Lab and Test Results and Notify Provider of Abnormal Findings; Assess Nutritional Status and Promote Good Nutrition (Carole Gale RN) Outcome: Patient will Remain Free of Infection (Carole Gale RN) Status: Ongoing (Carole Gale RN) Outcome: Infection will be Recognized Early to Allow for Prompt Treatment (Carole Gale RN) Status: Ongoing (Carole Gale, RN) Outcome: Patient will have Vital Signs Within Expected Range (Carole Gale, RN) Status: Ongoing (Carole Gale RN) State: Not Applicable (Carole Gale, RN) State: Risk For (Carole Gale RN) Related To: Labor and Delivery Process (Carole Gale, TRUE) Goal(s): Patient will Remain Free from Injury (Carole Gale RN) Interventions: Monitoring as per Hospital Protocol; Assess Neurological Status; Perform Risk Assessment of Patients with Induction and ; Perform Fall Risk Assessment and Prevention per Hospital Protocol; Perform DVT Risk Assessment and Prophylaxis per Hospital Protocol; Ensure that Oxygen, Suction, and Resuscitation Medications and Equipment are Readily Available; Confirm Patient ID Prior to Procedure(s) and Medication Administration per Hospital Policy (Carole Gale RN) Outcome: Successful Fall Risk Prevention (Carole Gale RN) Status: Ongoing (Carole Gale RN) Outcome: Patient will Deliver Infant without Adverse Sequela (Carole Gale RN) Status: Ongoing (Carole Gale, RN) Outcome: Patient's Neurological Status will Remain Stable (Carole Gale RN) Status: Ongoing (Carole Gale RN) State: Risk For (Carole Gale RN) Related To: Vaginal Delivery; Invasive Procedures (Carole Gale RN) Goal(s): Patient will Maintain Optimal Skin Integrity, Free of Breakdown, Injury or Infection (Carole Gale, RN) Interventions: Complete Screening for Pressure Ulcer Risk and Initiate Protocol per Hospital Policy; Monitor Site of Skin Impairment for Color Changes, Redness, Swelling, Warmth, Pain or Other Signs of Infection; Encourage and Assist with Position Changes; Monitor Patient's Mobility Status; Provide Adequate Nutrition and Fluids; Teach Patient Appropriate Hygienic Care; Teach Patient/Family Skin Care Management (Carole Gale RN) Outcome: Patient will not have Evidence of Injury Such as Skin Breakdown, Scrapes, Cuts, or Bruising (Carole Gale RN) Status: Ongoing (Carole Gale, RN) Outcome: Patient will Report Any Altered Sensation or Pain at Site of Skin Impairment (Carole Gale, RN) Status: Ongoing (Carole Gale, RN) Outcome: Patients Incisions and Wounds will be without Signs or Symptoms of Infection (Carole Gale, RN) Status: Ongoing (Carole Gale, RN) Outcome: Patient will Demonstrate Understanding of Plan to Heal Skin and Prevent Reinjury and Verbalize Risk Factors (Carole Gale, RN) Status: Ongoing (Carole Gale RN) State: Not Applicable (Carole Gale RN) State: Not Applicable (Carole Gale RN) State: Not Applicable (Carole Gale, RN) State: Not Applicable (Carole Gale, RN)
--- NOTE | 2016-03-11 06:15 | L&D Flow Sheet ---
LD Flowsheet Datetime Report Generated by CPN: 03/11/2016 06:15 Datetime: 03/10/2016 18:20 Stage of : Recovery (Paulette Lindsey RN) NBP Sys/Kendy/Mean (mmHg): 128 (QS system process) : 75 (QS system process) : 97 (QS system process) Pulse: 75 (QS system process) Pain Scale: 0 (Paulette Lindsey RN) Pain Presence: None/Denies (Paulette Lindsey RN) Pain Type: N/A (Paulette Lindsey RN) Pain Goal: 0 (Paulette Lindsey RN) Pain Relief Measures: Comfort Measures (Paulette Lindsey RN)
[2016-03-11 06:40] LABS: HEMATOCRIT 31.5 % (36.0-47.0); HEMOGLOBIN 10.7 g/dL (12.0-15.5); HGB HCT DIFFERENCE 0.6; MEAN CORPUSCULAR HEMOGLOBIN 29.2 pg (27.0-33.4); MEAN CORPUSCULAR VOLUME 86 fl (80-97); RED BLOOD COUNT 3.67 10^6/uL (3.72-5.28); RED CELL DISTRIBUTION WIDTH 13.5 % (11.5-14.0); WHITE BLOOD COUNT 16.5 10^3/uL (4.0-10.5)
--- NOTE | 2016-03-11 10:21 | PDOC PROGRESS REPORT ---
Subjective-OB Subjective: Post Delivery Day: 1 20 year old. Denies any needs at this time, voiding without difficulty, pain well controlled, lochia is stable. Physical Exam (OB) Vital Signs: Temp Pulse Resp BP Pulse Ox 97.5 F 60 18 116/74 100 03/11/16 07:42 03/11/16 07:42 03/11/16 07:42 03/11/16 07:42 03/11/16 07:42 Intake & Output 03/10/16 03/11/16 03/12/16 06:59 06:59 06:59 Weight 75.95 kg - Lochia Lochia Amount: Scant < 10 ml Lochia Color: Rubra/Red - Abdomen Description: Tender, Soft Hernia Present: No Fundal Description: Firm Fundal Height: u/u - u/2 Objective-Diagnostic Laboratory: 03/11/16 06:16 03/10/16 03/10/16 03/10/16 11:55 13:52 15:11 WBC 13.6 H RBC 4.21 Hgb 12.3 Hct 35.9 L MCV 85 MCH 29.3 MCHC 34.4 RDW 13.1 Plt Count 254 Seg Neutrophils % 76.8 Lymphocytes % 15.6 Monocytes % 7.0 Eosinophils % 0.3 Basophils % 0.3 Absolute Neutrophils 10.5 H Absolute Lymphocytes 2.1 Absolute Monocytes 1.0 Absolute Eosinophils 0.0 Absolute Basophils 0.0 Urine Color YELLOW Urine Appearance CLOUDY Urine pH 8.0 Ur Specific Buena 1.011 Urine Protein NEGATIVE Urine Glucose (UA) NEGATIVE Urine Ketones NEGATIVE Urine Blood SMALL H Urine Nitrite NEGATIVE Ur Leukocyte Esterase MODERATE H Blood Type O POSITIVE Antibody Screen NEGATIVE 03/11/16 06:16 WBC 16.5 H RBC 3.67 L Hgb 10.7 L Hct 31.5 L MCV 86 MCH 29.2 MCHC 34.0 RDW 13.5 Plt Count 227 Seg Neutrophils % Lymphocytes % Monocytes % Eosinophils % Basophils % Absolute Neutrophils Absolute Lymphocytes Absolute Monocytes Absolute Eosinophils Absolute Basophils Urine Color Urine Appearance Urine pH Ur Specific Buena Urine Protein Urine Glucose (UA) Urine Ketones Urine Blood Urine Nitrite Ur Leukocyte Esterase Blood Type Antibody Screen Assessment and Plan(PN) - Assessment and Plan (1) Vaginal delivery Is this a current diagnosis for this admission?: YesPlan: routine pp care - Time Spent with Patient Time with patient: Less than 15 minutes Critical Time spent with patient: Less than 15 minutes Medications reviewed and adjusted accordingly: Yes - Disposition Anticipated Discharge: Home Within: within 48 hours
[2016-03-11] MEDS: SENNOSIDES/DOCUSATE 8.6-50 MG 1 EACH TABLET PO SCH (10:49)
[2016-03-11] MEDS: FERROUS SULFATE 325 MG TABLET PO SCH ×2 (10:49→17:28)
[2016-03-11] MEDS: DOCUSATE SODIUM 100 MG CAPSULE PO SCH ×2 (10:49→17:28)
[2016-03-11] MEDS: PRENATAL VITAMIN W-O CA NO5/FE FUMARATE/FA CAPSULE PO SCH (10:50)
[2016-03-11 20:43] VITALS: BP 126/82
[2016-03-12] MEDS: IBUPROFEN 800 MG TABLET PO SCH (05:16)
--- NOTE | 2016-03-12 06:10 | L&D Current Admission ---
Current Admit Datetime Report Generated by CPN: 03/12/2016 06:00 ADMISSION INFORMATION Current Admit Date/Time: 03/10/2016 13:08 (03/10/2016 13:08:Paulette Lindsey RN) Reason for Admission: Onset of Labor (03/10/2016 13:08:Paulette Lindsey RN) Chief Complaint: Contractions (03/10/2016 13:08:Pualette Lindsey RN) Medications During : Vitamin (03/10/2016 13:08:Paulette Lindsey RN) EGA per Dates: 39.2 (03/10/2016 13:08:QS system process) Method of Arrival: Ambulatory (03/10/2016 13:08:Paulette Lindsey RN) Admitted From: Home (03/10/2016 13:08:Paulette Lindsey RN) Reason for Induction: Not Applicable (03/10/2016 13:08:Paulette Lindsey RN) Records Available: Yes (03/10/2016 13:08:Paulette Lindsey RN) General Admission Information: Reviewed; Updated; Confirmed (03/10/2016 13:08:Paulette Lindsey RN) General Admission Reviewed By: Brooklyn Lindsey RN (03/10/2016 13:08:Paulette Lindsey RN) BELONGINGS/ADVANCED DIRECTIVES Valuables/Personal Effects: Cell Phone (03/10/2016 13:08:Paulette Lindsey RN) Other Belongings: See Belongings sheet (03/10/2016 13:08:Paulette Lindsey RN) Disposition of Belongings: Kept with Patient (03/10/2016 13:08:Paulette Lindsey RN) Advance Direct for Healthcare: No, and Wants No Information (03/10/2016 13:08:Paulette Lindsey RN) Durable Power of Mail Distributor: No (03/10/2016 13:08:Paulette Lindsey RN) Living Will: No (03/10/2016 13:08:Paulette Lindsey RN) Organ Donor: No (03/10/2016 13:08:Paulette Lindsey RN) Pt Rights Information Given: Yes (03/10/2016 13:08:Paulette Lindsey RN) Pt Understands Pt Rights: Yes (03/10/2016 13:08:Paulette Lindsey RN) LEARNING ASSESSMENT Knowledge Level: Understands L_D Process; Understands Care Activities; Had Pre-Hospital Education; Understands Diagnosis (03/10/2016 13:08:Paulette Lindsey RN) Barriers to Learning: None (03/10/2016 13:08:Paulette Lindsey RN) Learning Readiness: Motivated (03/10/2016 13:08:Paulette Lindsey RN) Learns Best By: 1 to 1 Instruction (03/10/2016 13:08:Paulette Lindsey RN) Learning Needs: Labor and Delivery Process; Pain Management; Symptoms to Report; Treatment Plan; Medication; Diagnosis; Nutrition; Equipment; Infant Care; Community Resources (03/10/2016 13:08:Paulette Lindsey RN) DOMESTIC VIOLANCE SCREENING Dom Viol Threatened/Hurt: No (03/10/2016 13:08:Paulette Lindsey RN) Hx of Abuse/Neglect past 2yrs: No (03/10/2016 13:08:Paulette Lindsey RN) Feel Unsafe Going Home: No (03/10/2016 13:08:Paulette Lindsey RN) Addt'l Observ Indicating Abuse: No (03/10/2016 13:08:Paulette Lindsey RN) Reason Unable to Complete Screen: N/A, Screen Completed (03/10/2016 13:08:Paulette Lindsey RN) Considered Personal Harm/Suicide: No (03/10/2016 13:08:Paulette Lindsey RN) NUTRITIONAL/FUNCTIONAL SCREENING Problem with Appetite >5 Days: No (03/10/2016 13:08:Paulette Lindsey RN) Chew/Swallow Difficulties: No (03/10/2016 13:08:Paulette Lindsey RN) Inappropriate Wt Gain/Loss: No (03/10/2016 13:08:Paulette Lindsey RN) Presence Skin Breakdown/Ulcer: No (03/10/2016 13:08:Paulette Lindsey RN) Special Diet: No (03/10/2016 13:08:Paulette Lindsey RN) Pt Requests Tiger Machine Operator Visit: No (03/10/2016 13:08:Paulette Lindsey RN) Hx of Any of the Following?: N/A (03/10/2016 13:08:Paulette Lindsey RN) New Diagnosis of: N/A (03/10/2016 13:08:Paulette Lindsey RN) Requires Assist w/Ambulation: No (03/10/2016 13:08:Paulette Lindsey RN) Uses Assist Device to Ambulate: No (03/10/2016 13:08:Paulette Lindsey RN) Pt Requires Help w/ADL's: No (03/10/2016 13:08:Paulette Lindsey RN)
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
[2016-03-12] MEDS: DOCUSATE SODIUM 100 MG CAPSULE PO SCH (09:40)
[2016-03-12] MEDS: FERROUS SULFATE 325 MG TABLET PO SCH (09:40)
[2016-03-12] MEDS: SENNOSIDES/DOCUSATE 8.6-50 MG 1 EACH TABLET PO SCH (09:40)
[2016-03-12] MEDS: PRENATAL VITAMIN W-O CA NO5/FE FUMARATE/FA CAPSULE PO SCH (09:40)
--- NOTE | 2016-03-12 12:44 | PDOC PROGRESS REPORT ---
Subjective-OB Subjective: Post Delivery Day: 20 year old. Denies any needs at this time Physical Exam (OB) Vital Signs: Temp Pulse Resp BP Pulse Ox 98.0 F 81 18 126/82 H 100 03/12/16 07:55 03/12/16 07:55 03/12/16 07:55 03/11/16 19:15 03/12/16 07:55 Intake & Output 03/11/16 03/12/16 03/13/16 06:59 06:59 06:59 Intake Total 300 Balance 300 Weight 75.95 kg - Dressing Removed: No - Bilateral Tubal Ligation Dressing Removed: No - Lochia Lochia Amount: Scant < 10 ml Lochia Color: Rubra/Red - Abdomen Description: Tender, Soft Hernia Present: No Fundal Description: Firm, Midline Fundal Height: u/u - u/2 Objective-Diagnostic Laboratory: 03/11/16 06:16 Assessment and Plan(PN) - Time Spent with Patient Medications reviewed and adjusted accordingly: Yes - Disposition Anticipated Discharge: Home
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
--- NOTE | 2016-03-20 06:15 | L&D Current Admission ---
Current Admit Datetime Report Generated by CPN: 03/20/2016 06:00 ADMISSION INFORMATION Current Admit Date/Time: 03/10/2016 13:08 (03/10/2016 13:08:Paulette Lindsey RN) Reason for Admission: Onset of Labor (03/10/2016 13:08:Paulette Lindsey RN) Chief Complaint: Contractions (03/10/2016 13:08:Paulette Lindsey RN) Medications During : Vitamin (03/10/2016 13:08:Paulette Lindsey RN) EGA per Dates: 39.2 (03/10/2016 13:08:QS system process) Method of Arrival: Ambulatory (03/10/2016 13:08:Paulette Lindsey RN) Admitted From: Home (03/10/2016 13:08:Paulette Lindsey RN) Reason for Induction: Not Applicable (03/10/2016 13:08:Paulette Lindsey RN) Records Available: Yes (03/10/2016 13:08:Paulette Lindsey RN) General Admission Information: Reviewed; Updated; Confirmed (03/10/2016 13:08:Paulette Lindsey RN) General Admission Reviewed By: Brooklyn Lindsey RN (03/10/2016 13:08:Paulette Lindsey RN) BELONGINGS/ADVANCED DIRECTIVES Valuables/Personal Effects: Cell Phone (03/10/2016 13:08:Paulette Lindsey RN) Other Belongings: See Belongings sheet (03/10/2016 13:08:Paulette Lindsey RN) Disposition of Belongings: Kept with Patient (03/10/2016 13:08:Paulette Lindsey RN) Advance Direct for Healthcare: No, and Wants No Information (03/10/2016 13:08:Paulette Lindsey RN) Durable Power of Dining Room Helper: No (03/10/2016 13:08:Paulette Lindsey RN) Living Will: No (03/10/2016 13:08:Paulette Lindsey RN) Organ Donor: No (03/10/2016 13:08:Paulette Lindsey RN) Pt Rights Information Given: Yes (03/10/2016 13:08:Paulette Lindsey RN) Pt Understands Pt Rights: Yes (03/10/2016 13:08:Paulette Lindsey RN) LEARNING ASSESSMENT Knowledge Level: Understands L_D Process; Understands Care Activities; Had Pre-Hospital Education; Understands Diagnosis (03/10/2016 13:08:Paulette Lindsey RN) Barriers to Learning: None (03/10/2016 13:08:Paulette Lindsey RN) Learning Readiness: Motivated (03/10/2016 13:08:Paulette Lindsey RN) Learns Best By: 1 to 1 Instruction (03/10/2016 13:08:Paulette Lindsey RN) Learning Needs: Labor and Delivery Process; Pain Management; Symptoms to Report; Treatment Plan; Medication; Diagnosis; Nutrition; Equipment; Infant Care; Community Resources (03/10/2016 13:08:Paulette Lindsey RN) DOMESTIC VIOLANCE SCREENING Dom Viol Threatened/Hurt: No (03/10/2016 13:08:Paulette Lindsey RN) Hx of Abuse/Neglect past 2yrs: No (03/10/2016 13:08:Paulette Lindsey RN) Feel Unsafe Going Home: No (03/10/2016 13:08:Paulette Lindsey RN) Addt'l Observ Indicating Abuse: No (03/10/2016 13:08:Paulette Lindsey RN) Reason Unable to Complete Screen: N/A, Screen Completed (03/10/2016 13:08:Paulette Lindsey RN) Considered Personal Harm/Suicide: No (03/10/2016 13:08:Paulette Lindsey RN) NUTRITIONAL/FUNCTIONAL SCREENING Problem with Appetite >5 Days: No (03/10/2016 13:08:Paulette Lindsey RN) Chew/Swallow Difficulties: No (03/10/2016 13:08:Paulette Lindsey RN) Inappropriate Wt Gain/Loss: No (03/10/2016 13:08:Paulette Linsdey RN) Presence Skin Breakdown/Ulcer: No (03/10/2016 13:08:Paulette Lindsey RN) Special Diet: No (03/10/2016 13:08:Paulette Lindsey RN) Pt Requests Computer Systems Software Architect Visit: No (03/10/2016 13:08:Paulette Lindsey RN) Hx of Any of the Following?: N/A (03/10/2016 13:08:Paulette Lindsey RN) New Diagnosis of: N/A (03/10/2016 13:08:Paulette Lindsey RN) Requires Assist w/Ambulation: No (03/10/2016 13:08:Paulette Lindsey RN) Uses Assist Device to Ambulate: No (03/10/2016 13:08:Paulette Lindsey RN) Pt Requires Help w/ADL's: No (03/10/2016 13:08:Paulette Lindsey RN)
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
--- NOTE | 2016-03-21 06:15 | L&D Current Admission ---
Current Admit Datetime Report Generated by N: 03/21/2016 06:00 ADMISSION INFORMATION Current Admit Date/Time: 03/10/2016 13:08 (03/10/2016 13:08:Paulette Lindsey RN) Reason for Admission: Onset of Labor (03/10/2016 13:08:Paulette Lindsey RN) Chief Complaint: Contractions (03/10/2016 13:08:Paulette Lindsey RN) Medications During : Vitamin (03/10/2016 13:08:Paulette Lindsey RN) EGA per Dates: 39.2 (03/10/2016 13:08:QS system process) Method of Arrival: Ambulatory (03/10/2016 13:08:Paulette Lindsey RN) Admitted From: Home (03/10/2016 13:08:Paulette Lindsey RN) Reason for Induction: Not Applicable (03/10/2016 13:08:aPulette Lindsey RN) Records Available: Yes (03/10/2016 13:08:Paulette Lindsey RN) General Admission Information: Reviewed; Updated; Confirmed (03/10/2016 13:08:Paulette Lindsey RN) General Admission Reviewed By: Brooklyn Lindsey RN (03/10/2016 13:08:Paulette Lindsey RN) BELONGINGS/ADVANCED DIRECTIVES Valuables/Personal Effects: Cell Phone (03/10/2016 13:08:Paulette Lindsey RN) Other Belongings: See Belongings sheet (03/10/2016 13:08:Paulette Lindsey RN) Disposition of Belongings: Kept with Patient (03/10/2016 13:08:Paulette Lindsey RN) Advance Direct for Healthcare: No, and Wants No Information (03/10/2016 13:08:Paulette Lindsey RN) Durable Power of Rubber Stamps And Dies Supervisor: No (03/10/2016 13:08:Paulette Lindsey RN) Living Will: No (03/10/2016 13:08:Paulette Lindsey RN) Organ Donor: No (03/10/2016 13:08:Paulette Lindsey RN) Pt Rights Information Given: Yes (03/10/2016 13:08:Pauletet Lindsey RN) Pt Understands Pt Rights: Yes (03/10/2016 13:08:Paulette Lindsey RN) LEARNING ASSESSMENT Knowledge Level: Understands L_D Process; Understands Care Activities; Had Pre-Hospital Education; Understands Diagnosis (03/10/2016 13:08:Paulette Lindsey RN) Barriers to Learning: None (03/10/2016 13:08:Paulette Lindsey RN) Learning Readiness: Motivated (03/10/2016 13:08:Paulette Lindsey RN) Learns Best By: 1 to 1 Instruction (03/10/2016 13:08:Paulette Lindsey RN) Learning Needs: Labor and Delivery Process; Pain Management; Symptoms to Report; Treatment Plan; Medication; Diagnosis; Nutrition; Equipment; Infant Care; Community Resources (03/10/2016 13:08:Paulette Lindsey RN) DOMESTIC VIOLANCE SCREENING Dom Viol Threatened/Hurt: No (03/10/2016 13:08:Paulette Lindsey RN) Hx of Abuse/Neglect past 2yrs: No (03/10/2016 13:08:Paulette Lindsey RN) Feel Unsafe Going Home: No (03/10/2016 13:08:Paulette Lindsey RN) Addt'l Observ Indicating Abuse: No (03/10/2016 13:08:Paulette Lindsey RN) Reason Unable to Complete Screen: N/A, Screen Completed (03/10/2016 13:08:Paulette Lindsey RN) Considered Personal Harm/Suicide: No (03/10/2016 13:08:Paulette Lindsey RN) NUTRITIONAL/FUNCTIONAL SCREENING Problem with Appetite >5 Days: No (03/10/2016 13:08:Paulette Lindsey RN) Chew/Swallow Difficulties: No (03/10/2016 13:08:Paulette Lindsey RN) Inappropriate Wt Gain/Loss: No (03/10/2016 13:08:Paulette Lindsey RN) Presence Skin Breakdown/Ulcer: No (03/10/2016 13:08:Paulette Lindsey RN) Special Diet: No (03/10/2016 13:08:Paulette Lindsey RN) Pt Requests Lace Weaver Visit: No (03/10/2016 13:08:Paulette Lindsey RN) Hx of Any of the Following?: N/A (03/10/2016 13:08:Paulette Lindsey RN) New Diagnosis of: N/A (03/10/2016 13:08:Paulette Lindsey RN) Requires Assist w/Ambulation: No (03/10/2016 13:08:Paulette Lindsey RN) Uses Assist Device to Ambulate: No (03/10/2016 13:08:Paulette Lindsey RN) Pt Requires Help w/ADL's: No (03/10/2016 13:08:Paulette Lindsey RN)
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
--- NOTE | 2016-03-23 06:14 | L&D Current Admission ---
Current Admit Datetime Report Generated by CPN: 03/23/2016 06:00 ADMISSION INFORMATION Current Admit Date/Time: 03/10/2016 13:08 (03/10/2016 13:08:Paulette Lindsey RN) Reason for Admission: Onset of Labor (03/10/2016 13:08:Paulette Lindsey RN) Chief Complaint: Contractions (03/10/2016 13:08:Paulette Lindsey RN) Medications During : Vitamin (03/10/2016 13:08:Paulette Lindsey RN) EGA per Dates: 39.2 (03/10/2016 13:08:QS system process) Method of Arrival: Ambulatory (03/10/2016 13:08:Paulette Lindsey RN) Admitted From: Home (03/10/2016 13:08:Paulette Lindsey RN) Reason for Induction: Not Applicable (03/10/2016 13:08:Paulette Lindsey RN) Records Available: Yes (03/10/2016 13:08:Paulette Lindsey RN) General Admission Information: Reviewed; Updated; Confirmed (03/10/2016 13:08:Paulette Lindsey RN) General Admission Reviewed By: Brooklyn Lindsey RN (03/10/2016 13:08:Paulette Lindsey RN) BELONGINGS/ADVANCED DIRECTIVES Valuables/Personal Effects: Cell Phone (03/10/2016 13:08:Paulette Lindsey RN) Other Belongings: See Belongings sheet (03/10/2016 13:08:Paulette Lindsey RN) Disposition of Belongings: Kept with Patient (03/10/2016 13:08:Paulette Lindsey RN) Advance Direct for Healthcare: No, and Wants No Information (03/10/2016 13:08:Paulette Lindsey RN) Durable Power of Software Build Engineer: No (03/10/2016 13:08:Paulette Lindsey RN) Living Will: No (03/10/2016 13:08:Paulette Lindsey RN) Organ Donor: No (03/10/2016 13:08:Paulette Lindsey RN) Pt Rights Information Given: Yes (03/10/2016 13:08:Paulette Lindsey RN) Pt Understands Pt Rights: Yes (03/10/2016 13:08:Paulette Lindsey RN) LEARNING ASSESSMENT Knowledge Level: Understands L_D Process; Understands Care Activities; Had Pre-Hospital Education; Understands Diagnosis (03/10/2016 13:08:Paulette Lindsey RN) Barriers to Learning: None (03/10/2016 13:08:Paulette Lindsey RN) Learning Readiness: Motivated (03/10/2016 13:08:Paulette iLndsey RN) Learns Best By: 1 to 1 Instruction (03/10/2016 13:08:Paulette Lindsey RN) Learning Needs: Labor and Delivery Process; Pain Management; Symptoms to Report; Treatment Plan; Medication; Diagnosis; Nutrition; Equipment; Infant Care; Community Resources (03/10/2016 13:08:Paulette Lindsey RN) DOMESTIC VIOLANCE SCREENING Dom Viol Threatened/Hurt: No (03/10/2016 13:08:Paulette Lindsey RN) Hx of Abuse/Neglect past 2yrs: No (03/10/2016 13:08:Paulette Lindsey RN) Feel Unsafe Going Home: No (03/10/2016 13:08:Paulette Lindsey RN) Addt'l Observ Indicating Abuse: No (03/10/2016 13:08:Paulette Lindsey RN) Reason Unable to Complete Screen: N/A, Screen Completed (03/10/2016 13:08:Paulette Lindsey RN) Considered Personal Harm/Suicide: No (03/10/2016 13:08:Paulette Lindsey RN) NUTRITIONAL/FUNCTIONAL SCREENING Problem with Appetite >5 Days: No (03/10/2016 13:08:Paulette Lindsey RN) Chew/Swallow Difficulties: No (03/10/2016 13:08:Paulette Lindsey RN) Inappropriate Wt Gain/Loss: No (03/10/2016 13:08:Paulette Lindsey RN) Presence Skin Breakdown/Ulcer: No (03/10/2016 13:08:Paulette Lindsey RN) Special Diet: No (03/10/2016 13:08:Paulette Lindsey RN) Pt Requests Extractor Tender Raw Stock Visit: No (03/10/2016 13:08:Paulette Lindsey RN) Hx of Any of the Following?: N/A (03/10/2016 13:08:Paulette Lindsey RN) New Diagnosis of: N/A (03/10/2016 13:08:Paulette Lindsey RN) Requires Assist w/Ambulation: No (03/10/2016 13:08:Paulette Lindsey RN) Uses Assist Device to Ambulate: No (03/10/2016 13:08:Paulette Lindsey RN) Pt Requires Help w/ADL's: No (03/10/2016 13:08:Paulette Lindsey RN)
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
--- NOTE | 2016-03-24 06:14 | L&D Current Admission ---
Current Admit Datetime Report Generated by N: 03/24/2016 06:00 ADMISSION INFORMATION Current Admit Date/Time: 03/10/2016 13:08 (03/10/2016 13:08:Paulette Lindsey RN) Reason for Admission: Onset of Labor (03/10/2016 13:08:Paulette Lindsey RN) Chief Complaint: Contractions (03/10/2016 13:08:Paulette Lindsey RN) Medications During : Vitamin (03/10/2016 13:08:Paulette Lindsey RN) EGA per Dates: 39.2 (03/10/2016 13:08:QS system process) Method of Arrival: Ambulatory (03/10/2016 13:08:Paulette Lindsey RN) Admitted From: Home (03/10/2016 13:08:Paulette Lindsey RN) Reason for Induction: Not Applicable (03/10/2016 13:08:Paulette Lindsey RN) Records Available: Yes (03/10/2016 13:08:Paulette Lindsey RN) General Admission Information: Reviewed; Updated; Confirmed (03/10/2016 13:08:Paulette Lindsey RN) General Admission Reviewed By: Brooklyn Lindsey RN (03/10/2016 13:08:Paulette Lindsey RN) BELONGINGS/ADVANCED DIRECTIVES Valuables/Personal Effects: Cell Phone (03/10/2016 13:08:Paulette Lindsey RN) Other Belongings: See Belongings sheet (03/10/2016 13:08:Paulette Lindsey RN) Disposition of Belongings: Kept with Patient (03/10/2016 13:08:Paulette Lindsey RN) Advance Direct for Healthcare: No, and Wants No Information (03/10/2016 13:08:Paulette Lindsey RN) Durable Power of Leather Leveler: No (03/10/2016 13:08:Paulette Lindsey RN) Living Will: No (03/10/2016 13:08:Paulette Lindsey RN) Organ Donor: No (03/10/2016 13:08:Paulette Lindsey RN) Pt Rights Information Given: Yes (03/10/2016 13:08:Paulette Lindsey RN) Pt Understands Pt Rights: Yes (03/10/2016 13:08:Paulette Lindsey RN) LEARNING ASSESSMENT Knowledge Level: Understands L_D Process; Understands Care Activities; Had Pre-Hospital Education; Understands Diagnosis (03/10/2016 13:08:Paulette Lindsey RN) Barriers to Learning: None (03/10/2016 13:08:Paulette Lindsey RN) Learning Readiness: Motivated (03/10/2016 13:08:Paulette Lindsey RN) Learns Best By: 1 to 1 Instruction (03/10/2016 13:08:Paulette Lindsey RN) Learning Needs: Labor and Delivery Process; Pain Management; Symptoms to Report; Treatment Plan; Medication; Diagnosis; Nutrition; Equipment; Infant Care; Community Resources (03/10/2016 13:08:Paulette Lindsey RN) DOMESTIC VIOLANCE SCREENING Dom Viol Threatened/Hurt: No (03/10/2016 13:08:Paulette Lindsey RN) Hx of Abuse/Neglect past 2yrs: No (03/10/2016 13:08:Paulette Lindsey RN) Feel Unsafe Going Home: No (03/10/2016 13:08:Paulette Lindsey RN) Addt'l Observ Indicating Abuse: No (03/10/2016 13:08:Paulette Lindsey RN) Reason Unable to Complete Screen: N/A, Screen Completed (03/10/2016 13:08:Paulette Lindsey RN) Considered Personal Harm/Suicide: No (03/10/2016 13:08:Paulette Lindsey RN) NUTRITIONAL/FUNCTIONAL SCREENING Problem with Appetite >5 Days: No (03/10/2016 13:08:Paulette Lindsey RN) Chew/Swallow Difficulties: No (03/10/2016 13:08:Paulette Lindsey RN) Inappropriate Wt Gain/Loss: No (03/10/2016 13:08:Paulette Lindsey RN) Presence Skin Breakdown/Ulcer: No (03/10/2016 13:08:Paulette Lindsey RN) Special Diet: No (03/10/2016 13:08:Paulette Lindsey RN) Pt Requests Rn Invasive Visit: No (03/10/2016 13:08:Paulette Lindsey RN) Hx of Any of the Following?: N/A (03/10/2016 13:08:Paulette Lindsey RN) New Diagnosis of: N/A (03/10/2016 13:08:Paulette Lindsey RN) Requires Assist w/Ambulation: No (03/10/2016 13:08:Paulette Lindsey RN) Uses Assist Device to Ambulate: No (03/10/2016 13:08:Paulette Lindsey RN) Pt Requires Help w/ADL's: No (03/10/2016 13:08:Paulette Lindsey RN)
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
--- NOTE | 2016-03-25 06:15 | L&D Current Admission ---
Current Admit Datetime Report Generated by CPN: 03/25/2016 06:00 ADMISSION INFORMATION Current Admit Date/Time: 03/10/2016 13:08 (03/10/2016 13:08:Paulette Lindsey RN) Reason for Admission: Onset of Labor (03/10/2016 13:08:Paulette Lindsey RN) Chief Complaint: Contractions (03/10/2016 13:08:Paulette Lindsey RN) Medications During : Vitamin (03/10/2016 13:08:Paulette Lindsey RN) EGA per Dates: 39.2 (03/10/2016 13:08:QS system process) Method of Arrival: Ambulatory (03/10/2016 13:08:Paulette Lindsey RN) Admitted From: Home (03/10/2016 13:08:Paulette Lindsey RN) Reason for Induction: Not Applicable (03/10/2016 13:08:Paulette Lindsey RN) Records Available: Yes (03/10/2016 13:08:Paulette Lindsey RN) General Admission Information: Reviewed; Updated; Confirmed (03/10/2016 13:08:Paulette Lindsey RN) General Admission Reviewed By: Brooklyn Lindsey RN (03/10/2016 13:08:Paulette Linsdey RN) BELONGINGS/ADVANCED DIRECTIVES Valuables/Personal Effects: Cell Phone (03/10/2016 13:08:Paulette Lindsey RN) Other Belongings: See Belongings sheet (03/10/2016 13:08:Paulette Lindsey RN) Disposition of Belongings: Kept with Patient (03/10/2016 13:08:Paulette Lindsey RN) Advance Direct for Healthcare: No, and Wants No Information (03/10/2016 13:08:Paulette Lindsey RN) Durable Power of Hand I Blocker: No (03/10/2016 13:08:Paulette Lindsey RN) Living Will: No (03/10/2016 13:08:Paulette Lindsey RN) Organ Donor: No (03/10/2016 13:08:Paulette Lindsey RN) Pt Rights Information Given: Yes (03/10/2016 13:08:Paulette Lindsey RN) Pt Understands Pt Rights: Yes (03/10/2016 13:08:Paulette Lindsey RN) LEARNING ASSESSMENT Knowledge Level: Understands L_D Process; Understands Care Activities; Had Pre-Hospital Education; Understands Diagnosis (03/10/2016 13:08:Paulette Lindsey RN) Barriers to Learning: None (03/10/2016 13:08:Paulette Lindsey RN) Learning Readiness: Motivated (03/10/2016 13:08:Paulette Lindsey RN) Learns Best By: 1 to 1 Instruction (03/10/2016 13:08:Paulette Lindsey RN) Learning Needs: Labor and Delivery Process; Pain Management; Symptoms to Report; Treatment Plan; Medication; Diagnosis; Nutrition; Equipment; Infant Care; Community Resources (03/10/2016 13:08:Paulette Lindsey RN) DOMESTIC VIOLANCE SCREENING Dom Viol Threatened/Hurt: No (03/10/2016 13:08:Paulette Lindsey RN) Hx of Abuse/Neglect past 2yrs: No (03/10/2016 13:08:Paulette Lindsey RN) Feel Unsafe Going Home: No (03/10/2016 13:08:Paulette Lindsey RN) Addt'l Observ Indicating Abuse: No (03/10/2016 13:08:Paulette Lindsey RN) Reason Unable to Complete Screen: N/A, Screen Completed (03/10/2016 13:08:Paulette Lindsey RN) Considered Personal Harm/Suicide: No (03/10/2016 13:08:Paulette Lindsey RN) NUTRITIONAL/FUNCTIONAL SCREENING Problem with Appetite >5 Days: No (03/10/2016 13:08:Paulette Lindsey RN) Chew/Swallow Difficulties: No (03/10/2016 13:08:Paulette Lindsey RN) Inappropriate Wt Gain/Loss: No (03/10/2016 13:08:Paulette Lindsey RN) Presence Skin Breakdown/Ulcer: No (03/10/2016 13:08:Paulette Lindsey RN) Special Diet: No (03/10/2016 13:08:Paulette Lindsey RN) Pt Requests Material Handler Visit: No (03/10/2016 13:08:Paulette Lindsey RN) Hx of Any of the Following?: N/A (03/10/2016 13:08:Paulette Lindsey RN) New Diagnosis of: N/A (03/10/2016 13:08:Paulette Lindsey RN) Requires Assist w/Ambulation: No (03/10/2016 13:08:Paulette Lindsey RN) Uses Assist Device to Ambulate: No (03/10/2016 13:08:Paulette Lindsey RN) Pt Requires Help w/ADL's: No (03/10/2016 13:08:Paulette Lindsey RN)
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
--- NOTE | 2016-04-01 06:13 | L&D Current Admission ---
Current Admit Datetime Report Generated by CPN: 04/01/2016 06:00 ADMISSION INFORMATION Current Admit Date/Time: 03/10/2016 13:08 (03/10/2016 13:08:Paulette Lindsey RN) Reason for Admission: Onset of Labor (03/10/2016 13:08:Paulette Lindsey RN) Chief Complaint: Contractions (03/10/2016 13:08:Paulette Lindsey RN) Medications During : Vitamin (03/10/2016 13:08:Paulette Lindsey RN) EGA per Dates: 39.2 (03/10/2016 13:08:QS system process) Method of Arrival: Ambulatory (03/10/2016 13:08:Paulette Lindsey RN) Admitted From: Home (03/10/2016 13:08:Paulette Lindsey RN) Reason for Induction: Not Applicable (03/10/2016 13:08:Paulette Lindsey RN) Records Available: Yes (03/10/2016 13:08:Paulette Lindsey RN) General Admission Information: Reviewed; Updated; Confirmed (03/10/2016 13:08:Paulette Lindsey RN) General Admission Reviewed By: Brooklyn Lindsey RN (03/10/2016 13:08:Paulette Lindsey RN) BELONGINGS/ADVANCED DIRECTIVES Valuables/Personal Effects: Cell Phone (03/10/2016 13:08:Paulette Lindsey RN) Other Belongings: See Belongings sheet (03/10/2016 13:08:Paulette Lindsey RN) Disposition of Belongings: Kept with Patient (03/10/2016 13:08:Paulette Lindsey RN) Advance Direct for Healthcare: No, and Wants No Information (03/10/2016 13:08:Paulette Lindsey RN) Durable Power of Home Weatherizing Worker: No (03/10/2016 13:08:Paulette Lindsey RN) Living Will: No (03/10/2016 13:08:Paulette Lindsey RN) Organ Donor: No (03/10/2016 13:08:Paulette Lindsey RN) Pt Rights Information Given: Yes (03/10/2016 13:08:Paulette Lindsey RN) Pt Understands Pt Rights: Yes (03/10/2016 13:08:Paulette Lindsey RN) LEARNING ASSESSMENT Knowledge Level: Understands L_D Process; Understands Care Activities; Had Pre-Hospital Education; Understands Diagnosis (03/10/2016 13:08:Paulette Lindsey RN) Barriers to Learning: None (03/10/2016 13:08:Paulette Lindsey RN) Learning Readiness: Motivated (03/10/2016 13:08:Paulette Lindsey RN) Learns Best By: 1 to 1 Instruction (03/10/2016 13:08:Paulette Lindsey RN) Learning Needs: Labor and Delivery Process; Pain Management; Symptoms to Report; Treatment Plan; Medication; Diagnosis; Nutrition; Equipment; Infant Care; Community Resources (03/10/2016 13:08:Paulette Lindsey RN) DOMESTIC VIOLANCE SCREENING Dom Viol Threatened/Hurt: No (03/10/2016 13:08:Paulette Lindsey RN) Hx of Abuse/Neglect past 2yrs: No (03/10/2016 13:08:Paulette Lindsey RN) Feel Unsafe Going Home: No (03/10/2016 13:08:Paulette Lindsey RN) Addt'l Observ Indicating Abuse: No (03/10/2016 13:08:aPulette Lindsey RN) Reason Unable to Complete Screen: N/A, Screen Completed (03/10/2016 13:08:Paulette Lindsey RN) Considered Personal Harm/Suicide: No (03/10/2016 13:08:Paulette Lindsey RN) NUTRITIONAL/FUNCTIONAL SCREENING Problem with Appetite >5 Days: No (03/10/2016 13:08:Paulette Lindsey RN) Chew/Swallow Difficulties: No (03/10/2016 13:08:Paulette Lindsey RN) Inappropriate Wt Gain/Loss: No (03/10/2016 13:08:Paulette Lindsey RN) Presence Skin Breakdown/Ulcer: No (03/10/2016 13:08:Paulette Lindsey RN) Special Diet: No (03/10/2016 13:08:Paulette Lindsey RN) Pt Requests Skeins Yarn Examiner Visit: No (03/10/2016 13:08:Paulette Lindsey RN) Hx of Any of the Following?: N/A (03/10/2016 13:08:Paulette Lindsey RN) New Diagnosis of: N/A (03/10/2016 13:08:Paulette Lindsey RN) Requires Assist w/Ambulation: No (03/10/2016 13:08:Paulette Lindsey RN) Uses Assist Device to Ambulate: No (03/10/2016 13:08:Paulette Lindsey RN) Pt Requires Help w/ADL's: No (03/10/2016 13:08:Paulette Lindsey RN)
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
--- NOTE | 2016-05-02 15:21 | PDOC DISCHARGE SUMMARY ---
Final Diagnosis Discharge Date: 03/12/16 - Final Diagnosis (1) Vaginal delivery Is this a current diagnosis for this admission?: Yes Discharge Data - Discharge Medication Home Medications: Vit/Iron Fumarate/FA [ Tablet] 1 each PO DAILY 08/03/15 Calcium Carbonate [Tums] 1 tab.chew PO DAILY 02/08/16 Ibuprofen [Motrin 800 mg Tablet] 800 mg PO Q8 #90 tablet 03/12/16 Reason(s) for Admission: Onset of Labor Procedures: None Intrapartum Procedure(s): Spontaneous Vaginal Delivery - [place] Data Baby 1 Female at 1 minute: 7 at 5 minutes: 8 Weight: 2.981 kg Home with Mother: Yes Complications: No - Diagnosis Test Laboratory: Temp Pulse Resp BP Pulse Ox 98.0 F 81 18 126/82 H 100 03/12/16 07:55 03/12/16 07:55 03/12/16 07:55 03/11/16 19:15 03/12/16 07:55 03/10/16 03/10/16 03/11/16 11:55 13:52 06:16 RBC 4.21 3.67 L Hgb 12.3 10.7 L Hct 35.9 L 31.5 L Urine Opiates Screen NEGATIVE - Discharge information/Instructions Discharge Activity: Activity As Tolerated, Pelvic Rest Discharge Diet: Regular Disposition: HOME, SELF-CARE Follow up with: [facility] in: 4, Weeks
== END 2016-03-12 14:33 | disposition home or self-care (01) | DRG 775 ==
LOC: LC 11:45 → LR 13:17 → 2S 18:30
PROVIDERS: ADMIT Obstetrics & Gynecology; ATTEND Obstetrics & Gynecology
PROC: 10E0XZZ Delivery of Products of Conception, External Approach (ICD-10-PCS; principal; 2016-03-10)
PROC: 10907ZC Drainage of Amniotic Fluid, Therapeutic from Products of Conception, Via Natural or Artificial Opening (ICD-10-PCS; 2016-03-10)
PROC: 4A1HXCZ Monitoring of Products of Conception, Cardiac Rate, External Approach (ICD-10-PCS; 2016-03-10)
DX: O32.6XX0 Maternal care for compound presentation, not applicable or unspecified (principal); O99.344 Other mental disorders complicating childbirth; F41.9 Anxiety disorder, unspecified; F32.9 Major depressive disorder, single episode, unspecified; Z88.6 Allergy status to analgesic agent; Z91.018 Allergy to other foods; Z87.898 Personal history of other specified conditions; Z3A.39 39 weeks gestation of pregnancy; Z37.0 Single live birth
CPT/HCPCS: 36415; 80307; 81005; 85025; 85027; 86592; 86850; 86900; 86901; 94760; J2590; J3490

== ENCOUNTER 2016-05-30 17:58 | Emergency (ER) | payer MEDICAID ==
--- NOTE | 2016-05-30 18:30 | ER Document Report ---
ED Medical Screen (RME) - General Stated Complaint: SORE THROAT Notes: The patient states she has had a sore throat for about 3 days. Did have a fever last night at 102 along with nasal congestion and cough. Patient also has laryngitis. I have greeted and performed a rapid initial assessment of this patient. A comprehensive ED assessment and evaluation of the patient, analysis of test results and completion of the medical decision making process will be conducted by additional ED providers. TRAVEL OUTSIDE OF THE [place] IN LAST 30 DAYS: No - Related Data Allergies/Adverse Reactions: aspirin Allergy (Verified 05/30/16 18:29) pineapple Allergy (Verified 05/30/16 18:29) raspberry Allergy (Verified 05/30/16 18:29) Past Medical History GI Medical History: Reports: Hx Gastroesophageal Reflux Disease - during pregancy - Immunizations Hx Diphtheria, Pertussis, Tetanus Vaccination: Yes Physical Exam - HEENT Notes: Oropharynx with mild erythema, white area noted to right tonsil.
--- NOTE | 2016-05-30 20:32 | ER Document Report ---
HPI - HPI Patient complains to provider of: sinus pressure, cough, sore throat Pain Level: 2 Context: Patient is a 20-year-old female that comes emergency department for chief complaint of 3 days of illness including congestion, cough, sore throat, hoarseness, and fever yesterday which broke. She has not had a fever today. She states she is here because she needs a return to work note for Thursday which is in 3 days from now. Patient is currently breast-feeding, she denies any daily medications other than vitamins, she denies smoking, asthma, or any medical problems. - REPRODUCTIVE Reproductive: REPORTS: : - DERM Skin Color: Normal Past Medical History - General Information source: Patient - Social History Smoking Status: Never Smoker Chew tobacco use (# tins/day): No Frequency of alcohol use: None Drug Abuse: None Lives with: Family Family History: Reviewed & Not Pertinent Renal/ Medical History: Denies: Hx Peritoneal Dialysis GI Medical History: Reports: Hx Gastroesophageal Reflux Disease - during pregancy Surgical Hx: Negative - Immunizations Hx Diphtheria, Pertussis, Tetanus Vaccination: Yes Vertical Provider Document - CONSTITUTIONAL General Appearance: WD/WN, No Apparent Distress - INFECTION CONTROL TRAVEL OUTSIDE OF THE [place] IN LAST 30 DAYS: No - HEENT HEENT: negative: Normal ENT Exam - Patient with sinus congestion, sinus tenderness over the maxillary sinuses, very mildly erythematous pharynx, some small stones in the tonsils, otherwise unremarkable ENT exam with no evidence of peritonsillar abscess or airway obstruction - NECK Neck: Normal Inspection. negative: Lymphadenopathy-Left, Lymphadenopathy-Right - RESPIRATORY Respiratory: Breath Sounds Normal, No Respiratory Distress O2 Sat by Pulse Oximetry: 99 - CARDIOVASCULAR Cardiovascular: Regular Rate, Regular Rhythm - GI/ABDOMEN Gastrointestinal: Abdomen Soft, Abdomen Non-Tender - BACK Back: Normal Inspection - MUSCULOSKELETAL/EXTREMETIES Musculoskeletal/Extremeties: MAEW, FROM, Non-Tender - NEURO Level of Consciousness: Awake, Alert, Appropriate - DERM Integumentary: Warm, Dry, No Rash Course - Re-evaluation Re-evalutation: Exam is consistent with a sinus infection, patient informed that she has gallstones which could be addressed by primary care, patient is extremely well appearing, clear lungs, smiling,-year-old because she wants work release. Consistent with sinus infection secondary to viral syndrome. Patient will be treated for this. Discussed follow-up and return precautions. Patient states understanding and agreement. - Vital Signs Vital signs: Temp Pulse Resp BP Pulse Ox 98.6 F 97 18 135/72 H 99 05/30/16 18:28 05/30/16 18:28 05/30/16 18:28 05/30/16 18:28 05/30/16 18:28 Discharge - Discharge Clinical Impression: Sinusitis Qualifiers: Sinusitis location: unspecified location Chronicity: acute Recurrence: non- recurrent Qualified Code(s): J01.90 - Acute sinusitis, unspecified Upper respiratory infection Qualifiers: URI type: unspecified URI Qualified Code(s): J06.9 - Acute upper respiratory infection, unspecified Condition: Stable Disposition: HOME, SELF-CARE Additional Instructions: Examination is consistent with an upper respiratory viral syndrome and sinus infection. Influenza and strep tests are negative. Take the amoxicillin as directed (safe in ), consider [id number] remedies such as Millie pot. Follow-up with primary care. Return to emergency department for any concerning symptoms. Prescriptions: Amoxicillin Trihydrate [Amoxil 500 mg Capsule] 500 mg PO TID #30 cap Forms: Return to Work Referrals: CALEB MENDIOLA MD [Primary Care Provider] - Follow up as needed
[2016-05-30 20:46] VITALS: BP 123/80
== END 2016-05-30 20:44 | disposition home or self-care (01) ==
LOC: ER 17:58
DX: J01.90 Acute sinusitis, unspecified (principal); J06.9 Acute upper respiratory infection, unspecified
CPT/HCPCS: 87070; 87804; 87880; 99283

== ENCOUNTER 2017-12-01 22:59 | Emergency (ER) | payer MEDICAID ==
[2017-12-01 23:07] VITALS: BP 131/81
== END 2017-12-02 01:40 | disposition left against medical advice (07) ==
LOC: ER 22:59
DX: Z53.21 Procedure and treatment not carried out due to patient leaving prior to being seen by health care provider (principal)

== ENCOUNTER 2018-08-31 10:45 | Emergency (ER) | payer OTHER, MEDICAID ==
[2018-08-31] MEDS ORDERED: PROMETHAZINE HCL 25 MG TABLET PO ONE (11:09)
[2018-08-31] MEDS ORDERED: NORMAL SALINE 1000 ML 2,000 ML IV ONE (11:09)
[2018-08-31] MEDS ORDERED: DIPHENHYDRAMINE HCL 50 MG/ML VIAL IV ONE ×2 (11:09→14:02)
--- NOTE | 2018-08-31 11:11 | ER Document Report ---
ED GI/ - General Chief Complaint: Nausea/Vomiting Stated Complaint: VOMITING,DIZZY Time Seen by Provider: 08/31/18 11:06 Primary Care Provider: CALEB MENDIOLA MD [Primary Care Provider] - Follow up tomorrow Mode of Arrival: Ambulatory Information source: Patient Notes: Patient is currently 7 weeks 5 days G2, P1. Patient complains of nausea and vomiting x4 episodes today. Patient denies any diarrhea. Patient states she does have a prescription for Phenergan although the pharmacy was out of this medication and she is not been able to pick it up. Patient has been taking likely just without improvement of her symptoms. Patient had vomiting for the past week during this . Patient has had an ultrasound to confirm an intrauterine per her BALANCE ASSEMBLER. TRAVEL OUTSIDE OF THE [place] IN LAST 30 DAYS: No - HPI Patient complains to provider of: Vomiting Onset: Last week Timing/Duration: Persistent Menstrual period history: Associated symptoms: Nausea, Vomiting. 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 denies: Fever, Recent illness EENT: No symptoms reported Cardiovascular: No symptoms reported Respiratory: No symptoms reported Gastrointestinal: Nausea, Vomiting, Poor appetite, Poor fluid intake Genitourinary: No symptoms reported. denies: Dysuria Female Genitourinary: . denies: Vaginal discharge, Vaginal bleeding Musculoskeletal: No symptoms reported. denies: Back pain Skin: No symptoms reported Hematologic/Lymphatic: No symptoms reported Neurological/Psychological: No symptoms reported Physical Exam - Vital signs Vitals: Temp Resp BP Pulse Ox 98.5 F 18 139/79 H 98 08/31/18 10:50 08/31/18 10:50 08/31/18 10:50 08/31/18 10:50 - General General appearance: Appears well, Alert In distress: None - HEENT Head: Normocephalic, Atraumatic Eyes: Normal Conjunctiva: Normal Nasal: Normal Mouth/Lips: Normal Mucous membranes: Normal Pharynx: Normal Neck: Normal, Supple. No: Lymphadenopathy - Respiratory Respiratory status: No respiratory distress Chest status: Nontender Breath sounds: Normal. No: Rales, Rhonchi, Stridor, Wheezing Chest palpation: Normal - Cardiovascular Rhythm: Regular Heart sounds: S1 appreciated, S2 appreciated - Abdominal Inspection: Normal Distension: No distension Bowel sounds: Normal Tenderness: Tender - lower pelvic Organomegaly: No organomegaly - Back Back: Normal, Nontender. No: CVA tenderness - Extremities General upper extremity: Normal inspection, Normal ROM General lower extremity: Normal inspection, Normal ROM - Neurological Neuro grossly intact: Yes Cognition: Normal [place] Coma Scale Eye Opening: Spontaneous [place] Coma Scale Verbal: Oriented [place] Coma Scale Motor: Obeys Commands [place] Coma Scale Total: 15 - Psychological Associated symptoms: Normal affect, Normal mood - Skin Skin Temperature: Warm Skin Moisture: Dry Skin Color: Normal Course - Re-evaluation Re-evalutation: 08/31/18 12:24 IV fluids continue to infuse. Patient states nausea is improved at this time. 08/31/18 14:04 Patient attempting oral fluids, patient feels nauseous at this time. Patient has not vomited. Additional medications ordered. 08/31/18 14:29 Patient reports nausea is improved after additional medication. Patient has been taking sips of Sprite without emesis at this time. Patient feels as though she can manage her symptoms at home. Good return precautions discussed with patient. 08/31/18 14:29 Patient without UTI symptoms at this time. Patient with a poorly collected clean-catch specimen given the number of epithelial cells noted on urinalysis. Culture will be obtained. - Vital Signs Vital signs: Temp Pulse Resp BP Pulse Ox 98.0 F 78 16 132/75 H 99 08/31/18 14:00 08/31/18 14:00 08/31/18 14:00 08/31/18 14:00 08/31/18 14:00 - Laboratory Result Diagrams: 08/31/18 11:25 08/31/18 12:30 Laboratory results interpreted by me: 08/31/18 08/31/18 11:25 12:30 Sodium 136.0 L Glucose 70 L AST 45 H Beta HCG, Quant 497085.00 H Urine Ketones TRACE H Ur Leukocyte Esterase TRACE H Labs- Entire Visit 08/31/18 08/31/18 08/31/18 11:25 11:25 11:25 WBC 10.2 RBC 4.57 Hgb 13.9 Hct 40.4 MCV 88 MCH 30.4 MCHC 34.4 RDW 13.7 Plt Count 353 Seg Neutrophils % 72.2 Lymphocytes % 20.3 Monocytes % 6.7 Eosinophils % 0.4 Basophils % 0.4 Absolute Neutrophils 7.4 Absolute Lymphocytes 2.1 Absolute Monocytes 0.7 Absolute Eosinophils 0.0 Absolute Basophils 0.0 Sodium Cancelled Potassium Cancelled Chloride Cancelled Carbon Dioxide Cancelled Anion Gap Cancelled BUN Cancelled Creatinine Cancelled Est GFR ( Amer) Cancelled Est GFR (Non-Af Amer) Cancelled Glucose Cancelled Calcium Cancelled Total Bilirubin Cancelled Direct Bilirubin Cancelled Neonat Total Bilirubin Cancelled Neonat Direct Bilirubin Cancelled Neonat Indirect Bili Cancelled AST Cancelled ALT Cancelled Alkaline Phosphatase Cancelled Total Protein Cancelled Albumin Cancelled Lipase Cancelled Beta HCG, Quant Cancelled Total Beta HCG Cancelled Urine Color YELLOW Urine Appearance CLOUDY Urine pH 7.0 Ur Specific [place] 1.013 Urine Protein NEGATIVE Urine Glucose (UA) NEGATIVE Urine Ketones TRACE H Urine Blood NEGATIVE Urine Nitrite NEGATIVE Urine Bilirubin NEGATIVE Urine Urobilinogen NEGATIVE Ur Leukocyte Esterase TRACE H Urine WBC (Auto) 3 Urine RBC (Auto) 2 Urine Bacteria (Auto) 3+ Squamous Epi Cells Auto 52 Urine Mucus (Auto) FEW Urine Ascorbic Acid NEGATIVE 08/31/18 12:30 WBC RBC Hgb Hct MCV MCH MCHC RDW Plt Count Seg Neutrophils % Lymphocytes % Monocytes % Eosinophils % Basophils % Absolute Neutrophils Absolute Lymphocytes Absolute Monocytes Absolute Eosinophils Absolute Basophils Sodium 136.0 L Potassium 4.1 Chloride 104 Carbon Dioxide 24 Anion Gap 8 BUN 10 Creatinine 0.62 Est GFR ( Amer) > 60 Est GFR (Non-Af Amer) > 60 Glucose 70 L Calcium 8.8 Total Bilirubin 0.6 Direct Bilirubin 0.3 Neonat Total Bilirubin Not Reportable Neonat Direct Bilirubin Not Reportable Neonat Indirect Bili Not Reportable AST 45 H ALT 35 Alkaline Phosphatase 58 Total Protein 7.0 Albumin 3.7 Lipase 57.0 Beta HCG, Quant 105829.00 H Total Beta HCG POSITIVE Urine Color Urine Appearance Urine pH Ur Specific [place] Urine Protein Urine Glucose (UA) Urine Ketones Urine Blood Urine Nitrite Urine Bilirubin Urine Urobilinogen Ur Leukocyte Esterase Urine WBC (Auto) Urine RBC (Auto) Urine Bacteria (Auto) Squamous Epi Cells Auto Urine Mucus (Auto) Urine Ascorbic Acid Discharge - Discharge Clinical Impression: Nausea and vomiting during Condition: Stable Disposition: HOME, SELF-CARE Instructions: Antinausea Medication ([facility]), Intravenous (IV) Fluids ([facility]), Vomiting ([facility]) Additional Instructions: Return immediately for any new or worsening symptoms Followup with your primary care provider, call tomorrow to make a followup appointment You may take Benadryl [id number] to help with nausea symptoms Follow-up with your BALANCE ASSEMBLER for recheck Prescriptions: Promethazine HCl [Phenergan 25 mg Supp.rect] 1 supp TX Q6H PRN #12 supp.rect PRN Reason: Referrals: CALEB MENDIOLA MD [Primary Care Provider] - Follow up tomorrow
[2018-08-31 11:35] LABS: ABSOLUTE LYMPHOCYTES (AUTO) 2.1 10^3/uL (0.5-4.7); ABSOLUTE MONOCYTES (AUTO) 0.7 10^3/uL (0.1-1.4); ABSOLUTE NEUT (AUTO) 7.4 10^3/uL (1.7-8.2); BASOPHILS % (AUTO) 0.4 % (0-2); EOSINOPHILS % (AUTO) 0.4 % (0-6); HEMATOCRIT 40.4 % (36.0-47.0); HEMOGLOBIN 13.9 g/dL (12.0-15.5); LYMPHOCYTES % (AUTO) 20.3 % (13-45); MEAN CORPUSCULAR HEMOGLOBIN 30.4 pg (27.0-33.4); MEAN CORPUSCULAR HGB CONC 34.4 g/dL (32.0-36.0); MEAN CORPUSCULAR VOLUME 88 fl (80-97); MONOCYTES % (AUTO) 6.7 % (3-13); PLATELET COUNT 353 10^3/uL (150-450); RED BLOOD COUNT 4.57 10^6/uL (3.72-5.28); RED CELL DISTRIBUTION WIDTH 13.7 % (11.5-14.0); SEGMENTED NEUTROPHILS % (AUTO) 72.2 % (42-78); TOTAL CELLS COUNTED % (AUTO) 100 %; WHITE BLOOD COUNT 10.2 10^3/uL (4.0-10.5)
[2018-08-31 11:47] LABS: APPEARANCE,URINE CLOUDY; BILIRUBIN,URINE NEGATIVE (NEGATIVE); COLOR,URINE YELLOW; GLUCOSE, URINE NEGATIVE (NEGATIVE); KETONES,URINE TRACE mg/dL (NEGATIVE); LEUKOCYTE ESTERASE,URINE TRACE (NEGATIVE); NITRITE,URINE NEGATIVE (NEGATIVE); PROTEIN,URINE NEGATIVE (NEGATIVE); URINE SPECIFIC GRAVITY 1.013; UROBILINOGEN,URINE NEGATIVE mg/dL (<2.0)
[2018-08-31 13:08] LABS: ALANINE AMINOTRANSFERASE 35 U/L (9-52); ALBUMIN 3.7 g/dL (3.5-5.0); ALKALINE PHOSPHATASE 58 U/L (38-126); ANION GAP 8 (5-19); ASPARTATE AMINO TRANSFERASE 45 U/L (14-36); BILIRUBIN,DIRECT 0.3 mg/dL (0.0-0.4); BILIRUBIN,TOTAL 0.6 mg/dL (0.2-1.3); BLOOD UREA NITROGEN 10 mg/dL (7-20); CALCIUM 8.8 mg/dL (8.4-10.2); CARBON DIOXIDE 24 mmol/L (22-30); CHLORIDE 104 mmol/L (98-107); GLUCOSE 70 mg/dL (75-110); POTASSIUM 4.1 mmol/L (3.6-5.0)
[2018-08-31 14:06] VITALS: BP 132/75
== END 2018-08-31 14:41 | disposition home or self-care (01) ==
LOC: ER 10:45
DX: O21.9 Vomiting of pregnancy, unspecified (principal); T42.6X6A Underdosing of other antiepileptic and sedative-hypnotic drugs, initial encounter; Z91.128 Patient's intentional underdosing of medication regimen for other reason; Z91.14 Patient's other noncompliance with medication regimen; O26.891 Other specified pregnancy related conditions, first trimester; R63.0 Anorexia; R10.819 Abdominal tenderness, unspecified site; Z3A.01 Less than 8 weeks gestation of pregnancy; Z87.19 Personal history of other diseases of the digestive system; Z88.8 Allergy status to other drugs, medicaments and biological substances; Z91.018 Allergy to other foods
CPT/HCPCS: 96376; 99284; 96361; 96374; 36415; 87086; 84702; 83690; 85025; 80053; 81001; J1200; J7030

== ENCOUNTER 2018-11-24 11:06 | Emergency (ER) | payer OTHER, MEDICAID ==
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
[2018-11-24] MEDS ORDERED: ACETAMINOPHEN 325 MG TABLET PO ONE (13:15)
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
[2018-11-24 16:30] VITALS: BP 120/66
== END 2018-11-24 16:30 | disposition home or self-care (01) ==
LOC: ER 11:06
DX: O26.92 Pregnancy related conditions, unspecified, second trimester (principal); R10.9 Unspecified abdominal pain; X58.XXXA Exposure to other specified factors, initial encounter; Y99.0 Civilian activity done for income or pay; Z3A.20 20 weeks gestation of pregnancy; Z88.6 Allergy status to analgesic agent
CPT/HCPCS: 76805

== ENCOUNTER 2019-01-13 20:42 | Outpatient (CLI) | payer OTHER, MEDICAID ==
[2019-01-13 21:52] LABS: URINE AMPHETAMINES SCREEN NEGATIVE; URINE BARBITURATES SCREEN NEGATIVE; URINE BENZODIAZEPINES SCREEN NEGATIVE; URINE COCAINE SCREEN NEGATIVE; URINE MARIJUANA (THC) SCREEN NEGATIVE; URINE METHADONE SCREEN NEGATIVE; URINE PHENCYCLIDINE SCREEN NEGATIVE
[2019-01-13 21:53] LABS: APPEARANCE,URINE CLEAR; BILIRUBIN,URINE NEGATIVE (NEGATIVE); COLOR,URINE STRAW; GLUCOSE, URINE NEGATIVE (NEGATIVE); KETONES,URINE TRACE mg/dL (NEGATIVE); LEUKOCYTE ESTERASE,URINE NEGATIVE (NEGATIVE); NITRITE,URINE NEGATIVE (NEGATIVE); PROTEIN,URINE NEGATIVE (NEGATIVE); URINE SPECIFIC GRAVITY 1.008; UROBILINOGEN,URINE NEGATIVE mg/dL (<2.0)
== END 2019-01-13 22:08 | disposition home or self-care (01) ==
LOC: LC 20:42
PROVIDERS: ATTEND Obstetrics & Gynecology Gynecology
PROC: 4A1HXCZ Monitoring of Products of Conception, Cardiac Rate, External Approach (ICD-10-PCS; principal; 2019-01-13)
DX: O26.892 Other specified pregnancy related conditions, second trimester (principal); R10.9 Unspecified abdominal pain; Z3A.27 27 weeks gestation of pregnancy
CPT/HCPCS: 80307; 81001

== ENCOUNTER 2019-03-21 15:08 | Outpatient (CLI) | payer OTHER, MEDICAID ==
[2019-03-21] MEDS ORDERED: PROMETHAZINE HCL INJ 25 MG/1 ML VIAL IV ONE (15:34)
[2019-03-21] MEDS ORDERED: PROMETHAZINE HCL INJ 25 MG/1 ML VIAL ONE (15:36)
[2019-03-21 17:08] LABS: ABSOLUTE MONOCYTES (AUTO) 0.8 10^3/uL (0.1-1.4); ABSOLUTE NEUT (AUTO) 6.8 10^3/uL (1.7-8.2); BASOPHILS % (AUTO) 0.5 % (0-2); EOSINOPHILS % (AUTO) 0.4 % (0-6); HEMATOCRIT 33.9 % (36.0-47.0); HEMOGLOBIN 11.5 g/dL (12.0-15.5); LYMPHOCYTES % (AUTO) 20.3 % (13-45); MEAN CORPUSCULAR HEMOGLOBIN 29.7 pg (27.0-33.4); MEAN CORPUSCULAR HGB CONC 34.1 g/dL (32.0-36.0); MEAN CORPUSCULAR VOLUME 87 fl (80-97); MONOCYTES % (AUTO) 8.6 % (3-13); PLATELET COUNT 260 10^3/uL (150-450); RED BLOOD COUNT 3.89 10^6/uL (3.72-5.28); RED CELL DISTRIBUTION WIDTH 13.8 % (11.5-14.0); SEGMENTED NEUTROPHILS % (AUTO) 70.2 % (42-78); TOTAL CELLS COUNTED % (AUTO) 100 %; WHITE BLOOD COUNT 9.6 10^3/uL (4.0-10.5)
[2019-03-21 17:28] LABS: ALKALINE PHOSPHATASE 114 U/L (38-126); ANION GAP 9 (5-19); ASPARTATE AMINO TRANSFERASE 62 U/L (14-36); BILIRUBIN,DIRECT 0.5 mg/dL (0.0-0.4); BILIRUBIN,TOTAL 1.5 mg/dL (0.2-1.3); BLOOD UREA NITROGEN 9 mg/dL (7-20); CARBON DIOXIDE 23 mmol/L (22-30); CHLORIDE 102 mmol/L (98-107); GLUCOSE 60 mg/dL (75-110); POTASSIUM 3.9 mmol/L (3.6-5.0); TOTAL PROTEIN 5.9 g/dL (6.3-8.2)
== END 2019-03-21 16:14 | disposition home or self-care (01) ==
LOC: LC 15:08
PROVIDERS: ATTEND Obstetrics & Gynecology
PROC: 4A1HXCZ Monitoring of Products of Conception, Cardiac Rate, External Approach (ICD-10-PCS; principal; 2019-03-21)
DX: O21.2 Late vomiting of pregnancy (principal); Z3A.36 36 weeks gestation of pregnancy
CPT/HCPCS: 59899; 36415; 85025; 80053; J2550

== ENCOUNTER 2019-04-08 20:05 | Inpatient (IN) | payer OTHER, MEDICAID ==
[2019-04-08 20:43] LABS: APPEARANCE,URINE CLOUDY; BILIRUBIN,URINE NEGATIVE (NEGATIVE); COLOR,URINE AMBER; GLUCOSE, URINE NEGATIVE (NEGATIVE); KETONES,URINE NEGATIVE (NEGATIVE); LEUKOCYTE ESTERASE,URINE LARGE (NEGATIVE); NITRITE,URINE NEGATIVE (NEGATIVE); PROTEIN,URINE NEGATIVE (NEGATIVE); URINE SPECIFIC GRAVITY 1.016; UROBILINOGEN,URINE NEGATIVE mg/dL (<2.0)
[2019-04-08] MEDS ORDERED: RINGERS SOLUTION,LACTATED 1,000 ML IV PRN (20:54)
[2019-04-08 21:01] LABS: URINE AMPHETAMINES SCREEN NEGATIVE; URINE BARBITURATES SCREEN NEGATIVE; URINE BENZODIAZEPINES SCREEN NEGATIVE; URINE COCAINE SCREEN NEGATIVE; URINE MARIJUANA (THC) SCREEN NEGATIVE; URINE METHADONE SCREEN NEGATIVE; URINE PHENCYCLIDINE SCREEN NEGATIVE
[2019-04-08 21:57] LABS: ABSOLUTE BASOPHILS # (AUTO) 0.1 10^3/uL (0.0-0.2); ABSOLUTE EOSINOPHILS # (AUTO) 0.1 10^3/uL (0.0-0.6); ABSOLUTE LYMPHOCYTES (AUTO) 2.7 10^3/uL (0.5-4.7); ABSOLUTE NEUT (AUTO) 8.2 10^3/uL (1.7-8.2); BASOPHILS % (AUTO) 0.7 % (0-2); EOSINOPHILS % (AUTO) 0.8 % (0-6); HEMATOCRIT 36.2 % (36.0-47.0); HEMOGLOBIN 12.3 g/dL (12.0-15.5); LYMPHOCYTES % (AUTO) 22.2 % (13-45); MEAN CORPUSCULAR HEMOGLOBIN 29.7 pg (27.0-33.4); MEAN CORPUSCULAR HGB CONC 34.1 g/dL (32.0-36.0); MEAN CORPUSCULAR VOLUME 87 fl (80-97); MONOCYTES % (AUTO) 8.2 % (3-13); PLATELET COUNT 341 10^3/uL (150-450); RED BLOOD COUNT 4.15 10^6/uL (3.72-5.28); SEGMENTED NEUTROPHILS % (AUTO) 68.1 % (42-78); TOTAL CELLS COUNTED % (AUTO) 100 %
[2019-04-09] MEDS ORDERED: OXYTOCIN 10 UNIT/ML VIAL ONE (01:50)
[2019-04-09] MEDS ORDERED: MISOPROSTOL 0.2 MG TABLET ONE (01:50)
[2019-04-09] MEDS ORDERED: LIDOCAINE 1% INJ-PF (10 MG/ML) 30 ML SDV ONE (01:51)
[2019-04-09] MEDS ORDERED: OXYTOCIN/NORMAL SALINE 20 UNIT/1,000 ML RTUINJ ONE (01:51)
--- NOTE | 2019-04-09 02:26 | Admission Physical ---
Datetime Report Generated by CPN: 04/09/2019 02:25 CURRENT ADMISSION Chief Complaint: Uterine Contractions Indication for Induction: Not Applicable Admit Impression : Active Labor Admit Plan: Admit to Unit ALLERGIES Medication Allergies: Yes Medication Allergies: aspirin (04/08/2019); pineapple (04/08/2019); raspberry (04/08/2019) Latex: No Latex Allergies Environmental Allergies: none OBSTETRICAL HISTORY EDC: 04/14/2019 00:00 : 3 Para: 1 SAB: 1 Livin Gestational Diabetes: No Rh Sensitization: No Incompetent Cervix: No ROWDY: No Infertility: No ART Treatment: No Uterine Anomaly: No IUGR: No Hx Previous C/S: No Macrosomia: No Hx Loss/Stillborn: No PIH: No Hx : No Placenta Previa/Abruption: No Depression/PP Depression: No PTL/PROM: No Post Hemorrhage: No Current Procedures: Ultrasound Obstetrical History Comments: G1- miscarriage under 8 weeks G2- 2016, NVD,39.5 weeks G3- current SEE RECORDS Alcohol: No Marijuana : No Cocaine: No Other Illicit Drugs: No Cigarettes: Never Smoker. [id number] MEDICAL HISTORY Diabetes: No Blood Transfusion: No Pulmonary Disease (Asthma, TB): No Breast Disease: No Hypertension: No [employer] Consultant Surgery: No Heart Disease: No Hosp/Surgery: Yes Autoimmune Disorder: No Anesthetic Complications: No Kidney Disease: No Abnormal Pap Smear: No Neuro/Epilepsy: No Psychiatric Disorders: No Other Medical Diseases: No Hepatitis/Liver Disease: No Significant Family History: No Varicosities/Phlebitis: No Trauma/Violence : No Thyroid Dysfunction: No Medical History Comments: wisdom teeth in 2009 INFECTIOUS HISTORY Gonorrhea: No Genital Herpes: No Chlamydia: No Tuberculosis: No Syphilis: No Hepatitis: No HIV/AIDS Exposure: No Rash or Viral Illness: No HPV: No PHYSICAL EXAM General: Normal HEENT: Normal Neurologic: Normal Thyroid: Normal Heart: Normal Lungs: Normal Breast: Deferred Back: Normal Abdomen: Normal Genitourinary Exam: Normal Extremities: Normal DTRs: Normal Pelvic Type: Adequate Vital Signs: Reviewed VAGINAL EXAM Dilatation: 4 Effacement: 100 Station: -2 MEMBRANES Pooling: Positive Membranes: Ruptured FETUS A EGA: 39.2 Monitoring: External US FHR- Baseline: 130 Variability: Moderate 6-25bpm Decelerations: None FHR Category: Category I Admit Comment: Admit for labor PLANS FOR LABOR AND DELIVERY Labor and Delivery: None Pain Management: Natural Feeding Preference: Breast Benefit of Breast Feed Discussed: Yes Circumcision: N/A INFORMED CONSENT Signature: with User ID: [email or web address]
[2019-04-09] MEDS ORDERED: ACETAMINOPHEN WITH CODEINE #3 TABLET PO PRN ×2 (02:45)
[2019-04-09] MEDS ORDERED: ACETAMINOPHEN 650 MG SUPP.RECT PR PRN (02:45)
[2019-04-09] MEDS ORDERED: DIPHENHYDRAMINE HCL 25 MG CAPSULE PO PRN (02:45)
[2019-04-09] MEDS ORDERED: GLYCERIN/WITCH HAZEL LEAF 1 EACH MED..WIPE TP PRN (02:45)
[2019-04-09] MEDS ORDERED: DIPH/PERTUSS(ACELL)/TETANUS VAC/PF 0.5 ML SYR (>=10YO) IM PRN (02:45)
[2019-04-09] MEDS ORDERED: NA PHOS,M-B/NA PHOS,DI-BA (ADULT) 133 ML ENEMA PR PRN (02:45)
[2019-04-09] MEDS ORDERED: ZOLPIDEM TARTRATE 5 MG TABLET PO PRN (02:45)
[2019-04-09] MEDS ORDERED: PROMETHAZINE HCL 25 MG SUPP.RECT PR PRN (02:45)
[2019-04-09] MEDS ORDERED: DIBUCAINE 1% OINTMENT 28 GM TP PRN (02:45)
[2019-04-09] MEDS ORDERED: MEASLES,MUMPS&RUBELLA VACC/PF 0.5 ML VIAL SUBCUT PRN (02:45)
[2019-04-09] MEDS ORDERED: PROMETHAZINE HCL INJ 25 MG/1 ML VIAL IV PRN (02:45)
[2019-04-09] MEDS ORDERED: MAGNESIUM HYDROXIDE SUSP 30 ML UDCUP PO PRN (02:45)
[2019-04-09] MEDS ORDERED: BENZOCAINE/MENTHOL AEROSOL SPRAY 56 ML TOP PRN (02:45)
[2019-04-09] MEDS ORDERED: PROMETHAZINE HCL 25 MG TABLET PO PRN (02:45)
[2019-04-09] MEDS ORDERED: PSEUDOEPHEDRINE HCL 30 MG TABLET PO PRN (02:45)
[2019-04-09] MEDS ORDERED: OXYTOCIN/NORMAL SALINE 20 UNIT/1,000 ML RTUINJ IV PRN (02:45)
--- NOTE | 2019-04-09 03:33 | Delivery Summary ---
Del Sum A-C Datetime Report Generated by CPN: 04/09/2019 03:32 DELIVERY PERSONNEL DELIVERY PERSONNEL: [id number] Delivery Doctor:: Denis Morgan MD Labor and Delivery Nurse:: Pretty Kc RNsports broadcaster Nurse:: Olga Lidia Erazo RN Glass Smoother/TEASEL GIG OPERATOR: Savi Green, ST MATERNAL INFORMATION Delivery Anesthesia: None (Annotations: Data stored by [facility] on behalf of user) Medications After Delivery: Pitocin Drip 20 Units/1000ml NSS Meds After Delivery Comment: Pitocin 20 units/1000 mL NS bolus following placenta Delivery QBL: 150 Maternal Complications: None LABOR SUMMARY EDC: 04/14/2019 00:00 No. Babies in Womb: 1 Attempted: No Labor Anesthesia: None LABOR INFORMATION Reason for Induction: Not Applicable Onset of Labor: 04/08/2019 14:30 Complete Dilatation: 04/09/2019 02:09 Oxytocin: N/A Group B Beta Strep: negative Antibiotics # of Doses: 0 Antibiotics Time of Last Dose: n/a Steroids Given: None Reason Steroids Not Administered: Not Applicable MEMBRANES Membranes Rupture Method: Spontaneous Rupture of Membranes: 04/08/2019 14:30 Length of Rupture (hr): 11.70 Amniotic Fluid Color: Clear Amniotic Fluid Amount: Small Amniotic Fluid Odor: Normal STAGES OF LABOR Stage 1 hr: 11 Stage 1 min: 39 Stage 2 hr: 0 Stage 2 min: 3 Stage 3 hr: 0 Stage 3 min: 4 Total Time in Labor hr: 11 Total Time in Labor min: 46 VAGINAL DELIVERY Episiotomy: None Laceration #1: None Laceration Extension #1: N/A Laceration Repair: Not Applicable Sponge Count Correct: N/A Sharps Count Correct: N/A CSECTION DELIVERY Primary Indication: N/A Secondary Indication: N/A CSection Incidence: N/A Labor: N/A Elective: N/A CSection Incision: N/A BABY A INFORMATION Delivery Date/Time: 04/09/2019 02:12 Method of Delivery: Vaginal Born in Route : No : N/A Forceps: N/A Vacuum Extraction: N/A Shoulder Dystocia : No PRESENTATION/POSITION BABY A Presentation: Cephalic Cephalic Presentation: Vertex Vertex Position: Right Occipital Anterior Breech Presentation: N/A PLACENTA INFORMATION BABY A Placenta Delivery Time : 04/09/2019 02:16 Placenta Method of Delivery: Spontaneous Placenta Status: Delivered SCORES BABY A Heart Rate 1 min: >100 bpm Resp Effort 1 min: Good Cry Reflex Irritability 1 min: Cough or Sneeze or Pulls Away Muscle Tone 1 min: Active Motion Color 1 min: Body [place], Extremities Blue Resuscitation Effort 1 min: Tactile Stimulation SCORE 1 MIN: 9 Heart Rate 5 min: >100 bpm Resp Effort 5 min: Good Cry Reflex Irritability 5 min: Cough or Sneeze or Pulls Away Muscle Tone 5 min: Active Motion Color 5 min: Body [place], Extremities Blue Resuscitation Effort 5 min: Tactile Stimulation SCORE 5 MIN: 9 INFORMATION BABY A Gestational Age at Delivery: 39.2 Gestational Status: Full Term- 39- 40.6 Weeks Outcome : Liveborn Infant Condition : Stable Sex: Female (Annotations: Data stored by CPN on behalf of user) IDENTIFICATION BABY A Verification Date/Time: 04/09/2019 02:45 ID Band Number: [id number] Mother's Name Verified: Yes RN Verifying : Korey MorrisonSilvia RN Additional Verifying Personnel: DeElda RN CORD INFORMATION BABY A No. Cord Vessels: 3 Nuchal Cord : N/A Cord Blood Taken: Yes-For Eval (Mom's Blood Type - or O+) Suction: None ASSESSMENT BABY A Infant Complications: None Physical Findings at Delivery: Within Normal Limits Physical Findings- Other: see initial nursery assessment Infant Respirations: Appears Normal Skin to Skin: Yes Skin to Skin Time (min): 60 Lesson Instructor/ALS Called : No Infant Care By: Carlos Erazo RN Transferred To: Remains with Mother BABY B INFORMATION : N/A SIGNATURES Signature: with User ID: [email or web address]
[2019-04-09] MEDS: IBUPROFEN 800 MG TABLET PO SCH ×3 (06:08→21:27)
[2019-04-09 10:15] LABS: HEMATOCRIT 36.6 % (36.0-47.0); HEMOGLOBIN 12.5 g/dL (12.0-15.5); MEAN CORPUSCULAR HEMOGLOBIN 29.5 pg (27.0-33.4); MEAN CORPUSCULAR HGB CONC 34.1 g/dL (32.0-36.0); MEAN CORPUSCULAR VOLUME 87 fl (80-97); PLATELET COUNT 297 10^3/uL (150-450); RED BLOOD COUNT 4.22 10^6/uL (3.72-5.28); RED CELL DISTRIBUTION WIDTH 13.7 % (11.5-14.0)
[2019-04-09] MEDS: PRENATAL VITAMIN W DHA CAPSULE PO SCH (10:27)
[2019-04-09] MEDS: FAMOTIDINE 20 MG TABLET PO SCH ×2 (10:27→21:27)
[2019-04-09] MEDS: FERROUS SULFATE 325 MG TABLET PO SCH ×2 (10:27→17:11)
[2019-04-09] MEDS: DOCUSATE SODIUM 100 MG CAPSULE PO SCH ×2 (10:27→17:11)
[2019-04-09] MEDS: SENNOSIDES/DOCUSATE 8.6-50 MG 1 EACH TABLET PO SCH (10:27)
--- NOTE | 2019-04-09 10:48 | PDOC PROGRESS REPORT ---
Subjective-OB Progress Note for:: 04/09/19 Subjective: Doing well, no c/o, , voiding Physical Exam (OB) Vital Signs: Temp Pulse Resp BP Pulse Ox 97.5 F 63 18 114/66 100 04/09/19 07:24 04/09/19 07:24 04/09/19 07:24 04/09/19 07:24 04/09/19 07:24 Intake & Output 04/08/19 04/09/19 04/10/19 06:59 06:59 06:59 Weight 85.4 kg - Lochia Lochia Amount: Small 10-25 ml Lochia Color: Rubra/Red - Abdomen Description: Soft Hernia Present: No Fundal Description: Firm, Midline Fundal Height: u/u - u/2 Objective-Diagnostic Laboratory: 04/09/19 10:02 04/08/19 04/08/19 04/08/19 20:13 21:10 21:10 WBC 12.0 H RBC 4.15 Hgb 12.3 Hct 36.2 MCV 87 MCH 29.7 MCHC 34.1 RDW 14.0 Plt Count 341 Seg Neutrophils % 68.1 Urine Color DREW Urine Appearance CLOUDY Urine pH 6.0 Ur Specific [place] 1.016 Urine Protein NEGATIVE Urine Glucose (UA) NEGATIVE Urine Ketones NEGATIVE Urine Blood NEGATIVE Urine Nitrite NEGATIVE Ur Leukocyte Esterase LARGE H Blood Type O POSITIVE Antibody Screen NEGATIVE 04/09/19 10:02 WBC 15.0 H RBC 4.22 Hgb 12.5 Hct 36.6 MCV 87 MCH 29.5 MCHC 34.1 RDW 13.7 Plt Count 297 Seg Neutrophils % Urine Color Urine Appearance Urine pH Ur Specific [place] Urine Protein Urine Glucose (UA) Urine Ketones Urine Blood Urine Nitrite Ur Leukocyte Esterase Blood Type Antibody Screen Assessment and Plan(PN) - Assessment and Plan (1) Vaginal delivery Is this a current diagnosis for this admission?: Yes - Time Spent with Patient Time with patient: Less than 15 minutes Medications reviewed and adjusted accordingly: Yes - Disposition Anticipated Discharge: Home Within: within 24 hours
[2019-04-10] MEDS: IBUPROFEN 800 MG TABLET PO SCH ×3 (05:13→21:14)
[2019-04-10 07:38] LABS: HEMATOCRIT 34.9 % (36.0-47.0); HEMOGLOBIN 12.1 g/dL (12.0-15.5); MEAN CORPUSCULAR HGB CONC 34.5 g/dL (32.0-36.0); MEAN CORPUSCULAR VOLUME 87 fl (80-97); PLATELET COUNT 284 10^3/uL (150-450); RED BLOOD COUNT 4.02 10^6/uL (3.72-5.28); RED CELL DISTRIBUTION WIDTH 13.9 % (11.5-14.0); WHITE BLOOD COUNT 10.7 10^3/uL (4.0-10.5)
[2019-04-10] MEDS: SENNOSIDES/DOCUSATE 8.6-50 MG 1 EACH TABLET PO SCH (09:22)
[2019-04-10] MEDS: PRENATAL VITAMIN W DHA CAPSULE PO SCH (09:22)
[2019-04-10] MEDS: FERROUS SULFATE 325 MG TABLET PO SCH ×2 (09:22→17:13)
[2019-04-10] MEDS: DOCUSATE SODIUM 100 MG CAPSULE PO SCH ×2 (09:22→17:13)
[2019-04-10] MEDS: FAMOTIDINE 20 MG TABLET PO SCH ×2 (09:22→21:14)
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
[2019-04-11] MEDS: IBUPROFEN 800 MG TABLET PO SCH (05:09)
[2019-04-11 07:45] VITALS: BP 124/78
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
[2019-04-11] MEDS: FAMOTIDINE 20 MG TABLET PO SCH (09:25)
[2019-04-11] MEDS: DOCUSATE SODIUM 100 MG CAPSULE PO SCH (09:25)
[2019-04-11] MEDS: FERROUS SULFATE 325 MG TABLET PO SCH (09:25)
[2019-04-11] MEDS: PRENATAL VITAMIN W DHA CAPSULE PO SCH (09:25)
[2019-04-11] MEDS: SENNOSIDES/DOCUSATE 8.6-50 MG 1 EACH TABLET PO SCH (09:25)
== END 2019-04-11 12:23 | disposition home or self-care (01) | DRG 807 ==
LOC: LC 20:05 → LR 21:11 → 2S 04-09 05:05
PROVIDERS: ADMIT Obstetrics & Gynecology; ATTEND Obstetrics & Gynecology
PROC: 10E0XZZ Delivery of Products of Conception, External Approach (ICD-10-PCS; principal; 2019-04-09)
DX: O99.284 Endocrine, nutritional and metabolic diseases complicating childbirth (principal); Z37.0 Single live birth; O99.344 Other mental disorders complicating childbirth; F32.9 Major depressive disorder, single episode, unspecified; E06.3 Autoimmune thyroiditis; Z3A.39 39 weeks gestation of pregnancy
CPT/HCPCS: 36415; 59025; 80307; 81005; 84112; 85025; 85027; 86592; 86850; 86900; 86901; J2590; J3490